=== PATIENT | male | born 1960 | race Caucasian/White ===

== ENCOUNTER 2018-09-08 19:12 | Emergency (ER) | payer OTHER ==
--- NOTE | 2018-09-08 20:28 | ED Physician Documentation ---
PD HPI MHE - Stated complaint Stated Complaint: MHE - Chief complaint Chief Complaint: MHE - History obtained from History obtained from: Patient, Family - History of Present Illness Timing - onset: Unknown Contributing factors: Substance abuse - ETOH, Substance abuse - drugs Recently seen: Not recently seen - Additional information Additional information: Patient presents to the emergency department with his daughter. Patient states that he is out of his medication for a few weeks. The medications are queti apine, trazodone, and gabapentin. patients daughter says that the patient was recently kicked out of his girlfriends house. The daughter says her and other family paid for patient to stay at a hotel recently, but that he left hotel to try to get back with the girlfriend, and now does not have a place to live. Patients daughter says that the patient has been accusing her another family for being the cause of his current situation. she says that he has a history of alcohol use as well as illicit drug use, but she does not know if he has used either of these substances recently. She is concerned that his behavior in the last few days is consistent with gilson and expresses desire to have him stay in a hospital. the patient says he does not feel he is manic and he says he does not want to stay in a hospital at this time. Review of Systems Cardiac: reports: Reviewed and negative Respiratory: reports: Reviewed and negative GI: reports: Reviewed and negative Neurologic: reports: Reviewed and negative Psychiatric: reports: Insomnia. denies: Depressed, Suicidal, Homicidal, Hallucinations, Delusions, Anxiety PD PAST MEDICAL HISTORY - Past Medical History Past Medical History: Yes GI: GERD Psych: Bipolar disorder - Past Surgical History Past Surgical History: Yes General: Cholecystectomy Ortho: Other - Present Medications Home Medications: Ambulatory Orders Medication Instructions Recorded Confirmed Omeprazole 20 mg PO DAILY 08/18/16 09/08/18 QUEtiapine [SEROquel] 25 mg PO DAILY 08/18/16 09/08/18 Gabapentin 100 mg PO TID 09/08/18 09/08/18 traZODone [Desyrel] 100 mg PO DAILY PM 09/08/18 09/08/18 Cephalexin [Keflex] 500 mg PO BID #14 capsule 09/09/18 - Allergies Allergies/Adverse Reactions: Allergies Allergy/AdvReac Type Severity Reaction Status Date / Time codeine Allergy Emesis Verified 09/08/18 19:24 - Social History Does the pt smoke?: No Smoking Status: Former smoker Does the pt drink ETOH?: Yes Does the pt have substance abuse?: Yes Substance Use and Type: Marijuana - Immunizations Immunizations are current?: Yes PD ED PE NORMAL - Vitals Vital signs reviewed: Yes - General General: Alert and oriented X 3, No acute distress, Well developed/nourished - HEENT HEENT: PERRL, EOMI, Moist mucous membranes - Cardiac Cardiac: RRR, No murmur - Respiratory Respiratory: No respiratory distress, Clear bilaterally - Abdomen Abdomen: Soft, Non tender - Neuro Neuro: Alert and oriented X 3, hat parts cutter machine 2-12 intact, No motor deficit, No sensory deficit, Normal speech PD ED PE EXPANDED - Psych Psych: Poor eye contact, Other (flat affect) Results - Vitals Vitals: Vital Signs - 24 hr 09/09/18 07:50 Temperature 36.6 C Heart Rate 89 Respiratory 16 Rate Blood Pressure 151/100 H O2 Saturation 99 Oxygen O2 Source Room air - Labs Labs: Microbiology 09/08/18 21:35 Urine Culture - Preliminary Urine,Clean Catch Escherichia Coli Laboratory Tests 09/08/18 09/08/18 09/08/18 21:08 21:08 21:35 WBC 13.2 H RBC 5.10 Hgb 16.8 Hct 46.7 MCV 91.4 MCH 32.9 H MCHC 36.0 RDW 14.1 Plt Count 201 MPV 7.4 Neut # (Auto) 10.2 H Lymph # (Auto) 2.0 [place] # (Auto) 0.9 Eos # (Auto) 0.1 Baso # (Auto) 0.1 Absolute Nucleated RBC 0.01 Nucleated RBC % 0.0 Sodium 131 L Potassium 3.7 Chloride 93 L Carbon Dioxide 25 Anion Gap 13.0 BUN 21 H Creatinine 0.8 Estimated GFR (MDRD) 99 Glucose 138 H Calcium 9.5 Urine Color DARK YELLOW Urine Clarity HAZY Urine pH 5.5 Ur Specific [place] 1.020 Urine Protein NEGATIVE Urine Glucose (UA) NEGATIVE Urine Ketones 40 H Urine Occult Blood TRACE-LYSE Urine Nitrite POSITIVE H Urine Bilirubin NEGATIVE Urine Urobilinogen 0.2 (NORMAL) Ur Leukocyte Esterase MODERATE H Urine RBC 0-5 Urine WBC >25 H Ur Squamous Epith Cells FEW Squamous Urine Bacteria Few Urine Mucus Marked Strands Ur Microscopic Review INDICATED Urine Culture Comments INDICATED Salicylates < 6.0 Urine Opiates Screen NEGATIVE Ur Oxycodone Screen NEGATIVE Urine Methadone Screen NEGATIVE Ur Propoxyphene Screen NEGATIVE Acetaminophen < 10 L Ur Barbiturates Screen NEGATIVE Ur Tricyclics Screen NEGATIVE Ur Phencyclidine Scrn NEGATIVE Ur Amphetamine Screen POSITIVE H U Methamphetamines Scrn POSITIVE H U Benzodiazepines Scrn NEGATIVE Urine Cocaine Screen NEGATIVE U Cannabinoids Screen POSITIVE H Ethyl Alcohol < 5.0 PD MEDICAL DECISION MAKING - ED course Complexity details: reviewed results, re-evaluated patient, considered differential, d/w patient, d/w family ED course: patient was cooperative during my ED shift. he did not feel telepsych consult was necessary and wanted to simply have doses of, and prescriptions for, his usual medications (see HPI). however, he was willing to stay in ED for telepsych consult. telepsych consult recommended inpatient stay, and he stayed in ED overnight and I signed out the case to Dr. Mosley at end of my shift 7AM pending SW evaluation. Departure - Departure Disposition: 01 Home, Self Care Clinical Impression: Acute psychosis Acute cystitis Qualifiers: Hematuria presence: without hematuria Qualified Code(s): N30.00 - Acute cystitis without hematuria Condition: Fair Follow-Up: Fabián Rizvi PA [Primary Care Provider] - Prescriptions: Cephalexin [Keflex] 500 mg PO BID #14 capsule Comments: You have decided that you do not want to be placed into a behavioral health center. You understand that you have not been fully optimize regarding your medications. You have refused admission for ongoing management of your mental health. Your daughter is comfortable with this plan and has assumed your care.. You understand that you are risk for significant decompensation and worsening. If your symptoms worsen please return back to the emergency department immediately for any worsening or concerns. Discharge Date/Time: 09/09/18 12:15
[2018-09-08] MEDS ORDERED: ONDANSETRON ODT 4 MG TABLET TL STA (21:07)
[2018-09-08 21:16] LABS: BASOPHILS # (AUTO) 0.1 10^3/uL (0.0-0.1); BASOPHILS % (AUTO) 0.6 %; EOSINOPHILS # (AUTO) 0.1 10^3/uL (0.0-0.7); EOSINOPHILS % (AUTO) 0.6 %; HGB - HEMOGLOBIN 16.8 g/dL (14.0-18.0); LYMPHOCYTES % (AUTO) 14.7 %; MEAN CORPUSCULAR HEMOGLOBIN 32.9 pg (27.0-31.0); MEAN CORPUSCULAR VOLUME 91.4 fL (80.0-94.0); MEAN PLATELET VOLUME 7.4 fL (7.4-11.4); MONOCYTES # (AUTO) 0.9 10^3/uL (0.0-1.0); MONOCYTES % (AUTO) 6.8 %; NEUTROPHILS # (AUTO) 10.2 10^3/uL (1.5-6.6); NEUTROPHILS % (AUTO) 77.3 %; PLT - PLATELET COUNT 201 10^3/uL (130-450); RED CELL DISTRIBUTION WIDTH 14.1 % (12.0-15.0); WHITE BLOOD COUNT 13.2 x10^3/uL (4.8-10.8)
[2018-09-08 21:28] LABS: ACETAMINOPHEN < 10 ug/mL (10-30); BUN - BLOOD UREA NITROGEN 21 mg/dL (6-20); CALCIUM 9.5 mg/dL (8.5-10.3); CARBON DIOXIDE - CO2 25 mmol/L (21-32); CHLORIDE 93 mmol/L (101-111); CREATININE 0.8 mg/dL (0.6-1.2); GFR - MDRD 99 (>89); GLUCOSE 138 mg/dL (70-100); SALICYLATE < 6.0 mg/dL; SODIUM 131 mmol/L (135-145)
[2018-09-08 22:03] LABS: MUDS CUTOFF CONCENTRATIONS CUTOFF CONC BELOW:
[2018-09-08 22:07] LABS: BILIRUBIN,URINE NEGATIVE (NEGATIVE); GLUCOSE, URINE (UA) NEGATIVE (NEGATIVE); KETONES,URINE (UA) 40 mg/dL (NEGATIVE); LEUKOCYTE ESTERASE, URINE MODERATE (NEGATIVE); NITRITE,URINE POSITIVE (NEGATIVE); OCCULT BLOOD,URINE TRACE-LYSE (NEGATIVE); PH,URINE 5.5 PH (5.0-7.5); PROTEIN,URINE NEGATIVE (NEGATIVE); UROBILINOGEN,URINE 0.2 (NORMAL) E.U./dL (NORMAL)
[2018-09-08 22:09] LABS: CLARITY,URINE HAZY (CLEAR)
[2018-09-08 22:23] LABS: BACTERIA,URINE Few /HPF (None Seen); MUCUS,URINE Marked Strands; RBC,URINE 0-5 /HPF (0-5); SQUAMOUS EPITHELIAL CELL,UR FEW Squamous (<= Few)
[2018-09-08 22:24] LABS: AMPHETAMINE SCREEN,URINE POSITIVE (NEGATIVE); BENZODIAZEPINES SCREEN, URINE NEGATIVE (NEGATIVE); COCAINE SCREEN URINE NEGATIVE (NEGATIVE); METHADONE SCREEN, URINE NEGATIVE (NEGATIVE); METHAMPHETAMINES SCREEN, URINE POSITIVE (NEGATIVE); OPIATE SCREEN, URINE NEGATIVE (NEGATIVE); OXYCODONE SCREEN, URINE NEGATIVE (NEGATIVE); PROPOXYPHENE SCREEN, URINE NEGATIVE (NEGATIVE); TRICYCLIC ANTIDEPRESSANT,URINE NEGATIVE (NEGATIVE)
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
[2018-09-09] MEDS ORDERED: cephALEXin 250 MG CAPSULE PO STA (01:27)
[2018-09-09] MEDS ORDERED: LORazepam 0.5 MG TABLET PO STA (03:52)
[2018-09-09 07:54] VITALS: BP 151/100
[2018-09-09] MEDS ORDERED: LORazepam 0.5 MG TABLET PO PRN (10:22)
[2018-09-09] MEDS ORDERED: OLANZapine ODT 5 MG TABLET TL SCH (10:22)
--- NOTE | 2018-09-09 12:29 | ED Physician Documentation ---
ED Addendum - Addendum Addendum: 09/09/18 12:29 The patient's care was turned over to me at 7 AM by the off going emergency physician. The patient is currently awaiting placement into a behavioral center and for social work to provide placement. After social work had evaluated the patient The patient has decided that he does not want to be placed into a behavioral health center. Social work feels that the patient contracts for safety and is a safe discharge at this point. I reviewed the note from tele-psychiatry and explained to the patient that it appears that the patient would benefit from inpatient therapy since he does not appear safe at this time. The patient has decided that he does not want any treatment or transfer at our facility. Per social work the patient is not obtainable. The patient absconded from the emergency department prior to discharge instructions being given.
== END 2018-09-09 12:15 | disposition home or self-care (01) ==
LOC: ED 19:12
DX: F23 Brief psychotic disorder (principal); F30.9 Manic episode, unspecified; N30.00 Acute cystitis without hematuria; Z59.0 Homelessness; Z87.891 Personal history of nicotine dependence
CPT/HCPCS: 36415; 80048; 80306; 80307; 80320; 80329; 81001; 85025; 87086; 87181; 99283; 99284; A9270; G0426; Q0162; Q3014; 81003

== ENCOUNTER 2022-12-23 14:34 | Outpatient (CLI) | payer OTHER | END 2022-12-23 23:59 | disposition critical access hospital (66) | LOC: EMS 14:34 | DX: R45.851 Suicidal ideations (principal) | CPT/HCPCS: A0425; A0429 ==

== ENCOUNTER 2022-12-23 15:37 | Emergency (ER) | payer OTHER ==
--- NOTE | 2022-12-23 15:53 | ED Physician Documentation ---
PD HPI MHE - Stated complaint Stated Complaint: SI - History obtained from History obtained from: Patient - Additional information Additional information: 62-year-old gentleman ran out of his medications recently. He was on Wellbutrin 100 mg p.o. twice daily, Risperdal 1.5 mg at night, and trazodone 100 mg at night. He has been having trouble getting [facility]. [facility] and he mentioned that he does have a suicidal ideation. He says with no plan. They called 911 and he is here for evaluation and treatment. He admits to hopelessness and being in a bad place because of a pending eviction. He denies access to firearms, and he denies any suicidal plan. He has attempted suicide in the past but its been a few years, 2018. He declines hospitalization as he needs to go take care of his dogs Jennifer. PD PAST MEDICAL HISTORY - Past Medical History GI: GERD Psych: Bipolar disorder - Past Surgical History Past Surgical History: Yes General: Cholecystectomy Ortho: Other - Present Medications Home Medications: Ambulatory Orders Medication Instructions Recorded Confirmed Omeprazole 20 mg PO DAILY 08/18/16 09/08/18 QUEtiapine [SEROquel] 25 mg PO DAILY 08/18/16 09/08/18 Gabapentin 100 mg PO TID 09/08/18 09/08/18 traZODone [Desyrel] 100 mg PO DAILY PM 09/08/18 09/08/18 cephALEXin [Keflex] 500 mg PO BID #14 capsule 09/09/18 Trazodone HCl 100 mg PO QPM #30 tablet 12/23/22 buPROPion [Wellbutrin Sr] 100 mg PO BID #60 tablet 12/23/22 risperiDONE [RisperDAL] 1 mg PO QPM #30 tablet 12/23/22 - Allergies Allergies/Adverse Reactions: Allergies Allergy/AdvReac Type Severity Reaction Status Date / Time codeine Allergy Emesis Verified 09/08/18 19:24 - Social History Does the pt smoke?: No Smoking Status: Former smoker Does the pt drink ETOH?: Yes Does the pt have substance abuse?: Yes - Immunizations Immunizations are current?: Yes PD ED PE NORMAL - Vitals Vital signs reviewed: Yes - General General: Alert and oriented X 3, No acute distress - HEENT HEENT: PERRL, EOMI - Neuro Neuro: Alert and oriented X 3, nursing executive 2-12 intact, No motor deficit, No sensory deficit, Normal speech Eye Opening: Spontaneous Motor: Obeys Commands Verbal: Oriented GCS Score: 15 - Psych Psych: Normal mood Results - Vitals Vitals: Vital Signs - 24 hr 12/23/22 15:50 Temperature 37.3 C Heart Rate 65 Respiratory 18 Rate Blood Pressure 138/99 H O2 Saturation 96 Oxygen O2 Source Room air PD Medical Decision Making - ED course ED course: 62-year-old gentleman presents with vague suicidal ideation without plan. We are awaiting social work consultation when he walked out of the department without prescriptions or formal discharge. Departure - Departure Disposition: ED [place] Clinical Impression: Depression Condition: Good Record reviewed to determine appropriate education?: Yes Instructions: ED Depression Prescriptions: risperiDONE [RisperDAL] 1 mg PO QPM #30 tablet Trazodone HCl 100 mg PO QPM #30 tablet buPROPion [Wellbutrin Sr] 100 mg PO BID #60 tablet
[2022-12-23 15:57] VITALS: BP 138/99
== END 2022-12-23 16:02 | disposition left against medical advice (07) ==
LOC: EDUNIT# → ED 15:37
DX: R45.851 Suicidal ideations (principal); F32.A Depression, unspecified; Z87.891 Personal history of nicotine dependence
CPT/HCPCS: 99283

== ENCOUNTER 2023-02-02 13:50 | Outpatient (CLI) | payer OTHER | END 2023-02-02 23:59 | disposition critical access hospital (66) | LOC: EMS 13:50 | DX: Z04.6 Encounter for general psychiatric examination, requested by authority (principal); R45.851 Suicidal ideations; R45.1 Restlessness and agitation; Z78.1 Physical restraint status | CPT/HCPCS: A0425; A0429 ==

== ENCOUNTER 2023-02-02 14:13 | Emergency (ER) | payer OTHER ==
[2023-02-02] MEDS ORDERED: OLANZapine 10 MG VIAL IM STA (14:34)
[2023-02-02] MEDS ORDERED: traZODone 50 MG TABLET PO STA (14:34)
--- OUTSIDE RECORDS SUMMARY | 2023-02-02 14:45 | EXTERNAL MEDICAL SUMMARY RPT | Continuity of Care Document ---
:1960 Author Organization [facility] Address [address] [place] [address] Phone Care Team Providers Name Role Phone Giovanni Chirinos Unavailable Unavailable Allergies and Intolerances date description facility type (no date) No Known Drug Allergies [facility] ([facility] own) Encounters No information. Functional Status No information. Immunizations No information. Medications No information. Problems date description facility 2022-12-26 00:00 Unilateral incarcerated inguinal hernia [facility] 2023-01-02 08:57 Bilateral inguinal hernia, without obst ruction [facility] or gangrene, Procedures date description facility 2022-12-26 00:00 US scrotum [facility] 2022-12-26 00:00 Computed tomography of abdomen and pelv is [facility] without contrast 2022-12-27 00:00 Hernia Repair - Inguinal (Right) [facility] Results/Labs test date author facility value unit interpret ation Result panel 1 (unknown) (no date[facility] Result panel 2 (unknown) (no date) (unknown[facility]) Result panel 3 (unknown) (no date) (unknown[facility]) Result panel 4 (unknown) (no date) (unknown[facility]) Result panel 5 (unknown) (no date) (unknown[facility]) Result panel 6 (unknown) (no date) (unknown[facility]) Result panel 7 (unknown) (no date) (unknown[facility]) Result panel 8 (unknown) (no date) (unknown[facility]) Result panel 9 (unknown) (no date) (unknown[facility]) Result panel 10 (unknown) (no date) (unknown[facility]) Result panel 11 (unknown) (no date) (unknown[facility]) Result panel 12 (unknown) (no date) (unknown[facility]) Result panel 13 (unknown) (no date) (unknown[facility]) Result panel 14 (unknown) (no date) (unknown[facility]) Result panel 15 (unknown) (no date) (unknown[facility]) Result panel 16 (unknown) (no date) (unknown[facility]) Result panel 17 (unknown) (no date) (unknown[facility]) Result panel 18 (unknown) (no date) (unknown[facility]) Result panel 19 (unknown) (no date) (unknown[facility]) Result panel 20 (unknown) (no date) (unknown[facility]) Result panel 21 (unknown) (no date) (unknown[facility]) Result panel 22 (unknown) (no date) (unknown[facility]) Result panel 23 (unknown) (no date) (unknown[facility]) Result panel 24 (unknown) (no date) (unknown[facility]) Result panel 25 (unknown) (no date) (unknown[facility]) Result panel 26 (unknown) (no date) (unknown[facility]) Result panel 27 (unknown) (no date) (unknown[facility]) Result panel 28 (unknown) (no date) (unknown[facility]) Result panel 29 (unknown) (no date) (unknown[facility]) Result panel 30 (unknown) (no date) (unknown[facility]) Result panel 31 (unknown) (no date) (unknown[facility]) Result panel 32 (unknown) (no date) (unknown[facility]) Result panel 33 (unknown) (no date) (unknown[facility]) Result panel 34 (unknown) (no date) (unknown) [facility]) Result panel 35 (unknown) (no date) (unknown[facility]) Result panel 36 (unknown) (no date) (unknown[facility]) Result panel 37 (unknown) (no date) (unknown[facility]) Result panel 38 (unknown) (no date) (unknown[facility]) Result panel 39 (unknown) (no date) (unknown[facility]) Result panel 40 (unknown) (no date) (unknown[facility]) Result panel 41 (unknown) (no date) (unknown[facility]) Result panel 42 (unknown) (no date) (unknown[facility]) Result panel 43 (unknown) (no date) (unknown) [facility]) Result panel 44 (unknown) (no date) (unknown[facility]) Result panel 45 (unknown) (no date) (unknown[facility]) Result panel 46 (unknown) (no date) (unknown[facility]) Result panel 47 (unknown) (no date) (unknown[facility]) Result panel 48 (unknown) (no date) (unknown[facility]) Result panel 49 (unknown) (no date) (unknown) [facility]) Result panel 50 (unknown) (no date) (unknown) [facility]) Result panel 51 (unknown) (no date) (unknown[facility]) Result panel 52 (unknown) (no date) (unknown) [facility]) Result panel 53 (unknown) (no date) (unknown) [facility]) Result panel 54 (unknown) (no date) (unknown[facility]) Result panel 55 (unknown) (no date) (unknown[facility]) Result panel 56 (unknown) (no date) (unknown[facility]) Result panel 57 (unknown) (no date) (unknown[facility]) Result panel 58 (unknown) (no date) (unknown[facility]) Result panel 59 (unknown) (no date) (unknown[facility]) Result panel 60 (unknown) (no date) (unknown[facility]) Result panel 61 (unknown) (no date) (unknown) [facility]) Result panel 62 (unknown) (no date) (unknown) [facility]) Result panel 63 (unknown) (no date) (unknown) [facility]) Result panel 64 (unknown) (no date) (unknown) [facility]) Result panel 65 (unknown) (no date) (unknown) [facility]) Result panel 66 (unknown) (no date) (unknown) [facility]) Result panel 67 (unknown) (no date) (unknown) [facility]) Result panel 68 (unknown) (no date) (unknown) [facility]) Result panel 69 (unknown) (no date) (unknown) [facility]) Result panel 70 (unknown) (no date) (unknown) [facility]) Result panel 71 (unknown) (no date) (unknown) [facility]) Result panel 72 (unknown) (no date) (unknown) [facility]) Result panel 73 (unknown) (no date) (unknown) [facility]) Result panel 74 (unknown) (no date) (unknown) [facility]) Result panel 75 (unknown) (no date) (unknown) [facility]) Result panel 76 (unknown) (no date) (unknown) [facility]) Result panel 77 (unknown) (no date) (unknown[facility]) Result panel 78 (unknown) (no date) (unknown) (unknown) (no value) (units (un known) unknown) (unknown) (no date) (unknown) (unknown) 010 (units (unkn own) unknown) (unknown) (no date) (unknown) (unknown) 12/26/22 (units (unkn own) unknown) (unknown) (no date) (unknown) (unknown) 21:25 (units (unkn own) unknown) (unknown) (no date) (unknown) (unknown) Age/Sex: 62 / (units (unknown) M unknown) (unknown) (no date) (unknown) (unknown) Allergies (units (unk nown) unknown) (unknown) (no date) (unknown) (unknown) Allergy/AdvRea (units (unknown) c Type Severity unknown) Reaction Status Date / Time (unknown) (no date) (unknown) (unknown) Blood Pressure (units (unknown) 142/92 H unknown) 12/26/22 21:25 (unknown) (no date) (unknown) (unknown) Blood Pressure (units (unknown) 142/92 H unknown) (unknown) (no date) (unknown) (unknown) Chief (units (unkn own) complaint: unknown) Abdominal Pain (unknown) (no date) (unknown) (unknown) Course (units (unkn own) unknown) (unknown) (no date) (unknown) (unknown) : (units (unkn own) 1960 unknown) Acct:[id number] (unknown) (no date) (unknown) (unknown) Date of (units (unkn own) Service: unknown) 12/26/22 (unknown) (no date) (unknown) (unknown) ER Physician: (units (unknown) Giovanni Chirinos unknown) D.O. (unknown) (no date) (unknown) (unknown) Emergency (units (unk nown) Report unknown) (unknown) (no date) (unknown) (unknown) Exam (units (unkn own) unknown) (unknown) (no date) (unknown) (unknown) General (units (unkn own) unknown) (unknown) (no date) (unknown) (unknown) HPI - General (units (unknown) Adult unknown) (unknown) (no date) (unknown) (unknown) Initial Vital (units (unknown) Signs unknown) (unknown) (no date) (unknown) (unknown) Initial Vital (units (unknown) Signs: unknown) (unknown) (no date) (unknown) (unknown) [facility] ([facility] [address] unknown) [address] [place] [id number] (unknown) (no date) (unknown) (unknown) Mode of (units (unkn own) arrival: EMS unknown) (unknown) (no date) (unknown) (unknown) No Known Drug (units (unknown) Allergies unknown) Allergy Verified 12/26/22 21:43 (unknown) (no date) (unknown) (unknown) Oxygen (units (unkn own) Delivery Method unknown) 12/26/22 21:25 (unknown) (no date) (unknown) (unknown) Oxygen (units (unkn own) Delivery Method unknown) Room Air (unknown) (no date) (unknown) (unknown) Patient: (units (unkn own) Nithin Walton unknown) MR#: [id number] (unknown) (no date) (unknown) (unknown) Pulse Oximetry (units (unknown) 94 12/26/22 unknown) 21:25 (unknown) (no date) (unknown) (unknown) Pulse Oximetry (units (unknown) 94 unknown) (unknown) (no date) (unknown) (unknown) Pulse Rate 73 (units (unknown) 12/26/22 21:25 unknown) (unknown) (no date) (unknown) (unknown) Pulse Rate 73 (units (unknown) unknown) (unknown) (no date) (unknown) (unknown) Related Data (units ( unknown) unknown) (unknown) (no date) (unknown) (unknown) Respiratory (units (u nknown) Rate 20 unknown) 12/26/22 21:25 (unknown) (no date) (unknown) (unknown) Respiratory (units (u nknown) Rate 20 unknown) (unknown) (no date) (unknown) (unknown) Signed By: (units (un known) unknown) (unknown) (no date) (unknown) (unknown) Source: (units (unkn own) patient unknown) (unknown) (no date) (unknown) (unknown) Stated (units (unkn own) complaint: RLQ/ unknown) Testical pain (unknown) (no date) (unknown) (unknown) Temperature (units (u nknown) 98.2 F 12/26/22 unknown) 21:25 (unknown) (no date) (unknown) (unknown) Temperature (units (u nknown) 98.2 F unknown) (unknown) (no date) (unknown) (unknown) Time Seen by (units ( unknown) Provider: unknown) 12/26/22 21:58 (unknown) (no date) (unknown) (unknown) Vital Signs - (units (unknown) 8 hr unknown) (unknown) (no date) (unknown) (unknown) Vital Signs (units (u nknown) unknown) (unknown) (no date) (unknown) (unknown) Vital signs: (units ( unknown) unknown) Result panel 79 (unknown) (no date) (unknown) (unknown) 0.7 % (unkn own) (unknown) (no date) (unknown) (unknown) 1.8 % (unkn own) (unknown) (no date) (unknown) (unknown) 100 /ul (unkn own) (unknown) (no date) (unknown) (unknown) 14.0 % (unkn own) (unknown) (no date) (unknown) (unknown) 16.3 g/dl (unkn own) (unknown) (no date) (unknown) (unknown) 1700 /ul (unkn own) (unknown) (no date) (unknown) (unknown) 19.6 % (unkn own) (unknown) (no date) (unknown) (unknown) 200 /ul (unkn own) (unknown) (no date) (unknown) (unknown) 205 x10 3/ul (unkn own) (unknown) (no date) (unknown) (unknown) 31.7 pg (unkn own) (unknown) (no date) (unknown) (unknown) 34.9 % (unkn own) (unknown) (no date) (unknown) (unknown) 46.6 % (unkn own) (unknown) (no date) (unknown) (unknown) 5.13 x10 6/ul (unkn own) (unknown) (no date) (unknown) (unknown) 500 /ul (unkn own) (unknown) (no date) (unknown) (unknown) 6.2 % (unkn own) (unknown) (no date) (unknown) (unknown) 6300 /ul (unkn own) (unknown) (no date) (unknown) (unknown) 71.7 % (unkn own) (unknown) (no date) (unknown) (unknown) 8.8 x10 3/ul (unkn own) (unknown) (no date) (unknown) (unknown) 90.8 fl (unkn own) Result panel 80 (unknown) (no date) (unknown) (unknown) > 60 ml/min (unkn own) (unknown) (no date) (unknown) (unknown) > 60 ml/min (unkn own) (unknown) (no date) (unknown) (unknown) 0.81 mg/dl (unkn own) (unknown) (no date) (unknown) (unknown) 105 mmol/l (unkn own) (unknown) (no date) (unknown) (unknown) 12 mg/dl (unkn own) (unknown) (no date) (unknown) (unknown) 138 mmol/l (unkn own) (unknown) (no date) (unknown) (unknown) 14.8 (units unknown) (unknown) (unknown) (no date) (unknown) (unknown) 192 mg/dl (unkn own) (unknown) (no date) (unknown) (unknown) 192 mg/dl (unkn own) (unknown) (no date) (unknown) (unknown) 21 mmol/l (unkn own) (unknown) (no date) (unknown) (unknown) 4.2 mmol/l (unkn own) (unknown) (no date) (unknown) (unknown) 4.2 mmol/l (unkn own) (unknown) (no date) (unknown) (unknown) 9.2 mg/dl (unkn own) Result panel 81 (unknown) (no date) (unknown) (unknown) Negative (units (unkn own) unknown) (unknown) (no date) (unknown) (unknown) Negative (units (unkn own) unknown) Result panel 82 (unknown) (no (unknown) (unknown) (no value) (units (unk nown) date) unknown) (unknown) (no (unknown) (unknown) 12/26/22 (units (unkno wn) date) unknown) (unknown) (no (unknown) (unknown) 1. (units (unkno wn) date) Bowel-containing unknown) inguinal hernia demonstrated lateral to the right (unknown) (no (unknown) (unknown) 1. Small right (units (unknown) date) inguinal hernia unknown) with partial herniation of a small bowel loop. (unknown) (no (unknown) (unknown) [address] (units (unknown) date) unknown) (unknown) (no (unknown) (unknown) 2. Mild segmental (units (unknown) date) wall thickening in unknown) the sigmoid colon suggestive of a mild (unknown) (no (unknown) (unknown) 3. Colonic (units (unk nown) date) diverticulosis unknown) without definite acute diverticulitis. (unknown) (no (unknown) (unknown) 4. No evidence of (units (unknown) date) appendicitis. unknown) (unknown) (no (unknown) (unknown) 9010 (units (unkno wn) date) unknown) (unknown) (no (unknown) (unknown) ABDOMEN: (units (unkno wn) date) unknown) (unknown) (no (unknown) (unknown) Abdominal Nodes: (units (unknown) date) No retroperitoneal unknown) or mesenteric adenopathy by size criteria. (unknown) (no (unknown) (unknown) Accession Number: (units (unknown) date) [id number] unknown) (unknown) (no (unknown) (unknown) Accession Number: (units (unknown) date) [id number] unknown) (unknown) (no (unknown) (unknown) Adrenal Glands: (units (unknown) date) No adrenal unknown) nodules. (unknown) (no (unknown) (unknown) Age/Sex: 62 / M (units (unknown) date) Date of Service: unknown) (unknown) (no (unknown) (unknown) [place], [place] (units ( unknown) date) [id number] unknown) (unknown) (no (unknown) (unknown) Approved by: (units (u nknown) date) Anibal Lechuga, unknown) M.DChloe on 12/27/2022 at 2:06 (unknown) (no (unknown) (unknown) Approved by: (units (u nknown) date) Anibal Lechuga, unknown) MChloeDChloe on 12/27/2022 at 2:23 (unknown) (no (unknown) (unknown) Axial sections (units (unknown) date) were acquired from unknown) the lung bases to the pubic symphysis. (unknown) (no (unknown) (unknown) Biliary ducts: No (units (unknown) date) biliary ductal unknown) dilatation. (unknown) (no (unknown) (unknown) Bladder: (units (unkno wn) date) Unremarkable. unknown) (unknown) (no (unknown) (unknown) Bones: Visualized (units (unknown) date) osseous structures unknown) demonstrate no suspicious focal lesions. (unknown) (no (unknown) (unknown) COMPARISON: None. (units (unknown) date) unknown) (unknown) (no (unknown) (unknown) CT Scan Report (units (unknown) date) unknown) (unknown) (no (unknown) (unknown) Color and pulse (units (unknown) date) Doppler unknown) interrogation was performed of both testicles. (unknown) (no (unknown) (unknown) Coronal and (units (un known) date) unknown) (unknown) (no (unknown) (unknown) : 1960 (units (unknown) date) Acct:[id number] unknown) (unknown) (no (unknown) (unknown) Dictated by: (units (u nknown) date) Anibal Lechuga, unknown) M.D. on 12/27/2022 at 1:44 (unknown) (no (unknown) (unknown) Dictated by: (units (u nknown) date) Anibal Lechuga, unknown) M.D. on 12/27/2022 at 2:18 (unknown) (no (unknown) (unknown) Doppler: Color (units (unknown) date) and pulse Doppler unknown) demonstrate normal and symmetric arterial (unknown) (no (unknown) (unknown) Epididymis is (units ( unknown) date) normal in overall unknown) size and morphology. No hydrocele or (unknown) (no (unknown) (unknown) FINDINGS: (units (unkn own) date) unknown) (unknown) (no (unknown) (unknown) Gallbladder: (units (u nknown) date) Surgically absent. unknown) (unknown) (no (unknown) (unknown) Heart: Heart is (units (unknown) date) normal in size. unknown) There is a small hiatal hernia. (unknown) (no (unknown) (unknown) IMPRESSION: (units (un known) date) unknown) (unknown) (no (unknown) (unknown) INDICATIONS: PAIN (units (unknown) date) unknown) (unknown) (no (unknown) (unknown) INDICATIONS: abd (units (unknown) date) pain unknown) (unknown) (no (unknown) (unknown) Image quality: (units (unknown) date) Excellent. unknown) (unknown) (no (unknown) (unknown) [facility] (units (unknown) date) unknown) (unknown) (no (unknown) (unknown) Kidneys and (units (un known) date) Ureters: No unknown) hydronephrosis. There is a nonobstructing stone (unknown) (no (unknown) (unknown) Left: Testicle (units (unknown) date) measures 3.5 x 2.0 unknown) x 2.2 cm and appears homogeneous in (unknown) (no (unknown) (unknown) Liver: (units (unkno wn) date) Noncontrast unknown) evaluation of the liver demonstrates no discrete hepatic (unknown) (no (unknown) (unknown) Loc: [facility]-1 (units ( unknown) date) unknown) (unknown) (no (unknown) (unknown) Lung bases: There (units (unknown) date) is mild dependent unknown) atelectasis. (unknown) (no (unknown) (unknown) Miscellaneous: (units (unknown) date) There is a small unknown) right inguinal hernia with partial herniation (unknown) (no (unknown) (unknown) No (units (unkno wn) date) unknown) (unknown) (no (unknown) (unknown) Ordering (units (unkno wn) date) Provider: unknown) Giovanni Chirinos D.O. (unknown) (no (unknown) (unknown) Overlying scrotal (units (unknown) date) skin is normal in unknown) thickness. There is a bowel containing (unknown) (no (unknown) (unknown) Overlying scrotal (units (unknown) date) skin is normal in unknown) thickness. (unknown) (no (unknown) (unknown) PELVIS: (units (unkno wn) date) unknown) (unknown) (no (unknown) (unknown) PROCEDURE: CT (units ( unknown) date) ABDOMEN PELVIS WO unknown) CON (unknown) (no (unknown) (unknown) PROCEDURE: US (units ( unknown) date) SCROTUM unknown) (unknown) (no (unknown) (unknown) Pancreas: There (units (unknown) date) is mild dilatation unknown) of the pancreatic duct in the pancreatic (unknown) (no (unknown) (unknown) Patient: (units (unkno wn) date) Nithin Walton MR#: unknown) [id number] (unknown) (no (unknown) (unknown) Pelvic Nodes: No (units (unknown) date) enlarged lymph unknown) nodes. (unknown) (no (unknown) (unknown) Pelvic Organs: (units (unknown) date) Unremarkable. unknown) (unknown) (no (unknown) (unknown) Peritoneum: No (units (unknown) date) abnormal unknown) intraperitoneal fluid. No free air. (unknown) (no (unknown) (unknown) Procedure: CT (units ( unknown) date) abdomen pelvis wo unknown) con (unknown) (no (unknown) (unknown) Procedure: US (units ( unknown) date) scrotum unknown) (unknown) (no (unknown) (unknown) Real-time (units (unkn own) date) scanning was unknown) performed of the scrotum and testicles, with image (unknown) (no (unknown) (unknown) Right: Testicle (units (unknown) date) measures 4.1 x 2.4 unknown) x 2.6 cm and appears homogenous in (unknown) (no (unknown) (unknown) Signed (units (unkno wn) date) unknown) (unknown) (no (unknown) (unknown) Spleen: Normal in (units (unknown) date) size. unknown) (unknown) (no (unknown) (unknown) Stomach and (units (un known) date) Bowel: Stomach and unknown) small bowel loops are normal in caliber and (unknown) (no (unknown) (unknown) TECHNIQUE: (units (unk nown) date) unknown) (unknown) (no (unknown) (unknown) Ultrasound Report (units (unknown) date) unknown) (unknown) (no (unknown) (unknown) Ventral Wall: No (units (unknown) date) hernia. unknown) (unknown) (no (unknown) (unknown) Vessels: Aorta (units (unknown) date) and inferior vena unknown) cava are normal in size. (unknown) (no (unknown) (unknown) approximately (units ( unknown) date) 500-600 [place] unknown) units. (unknown) (no (unknown) (unknown) automated (units (unkn own) date) exposure control, unknown) adjustment of mA and/or kV according to patient (unknown) (no (unknown) (unknown) bowel loop. No (units (unknown) date) evidence of unknown) associated bowel obstruction or strangulation. (unknown) (no (unknown) (unknown) colitis. (units (unkno wn) date) unknown) (unknown) (no (unknown) (unknown) demonstrated (units (u nknown) date) unknown) (unknown) (no (unknown) (unknown) diverticulosis (units (unknown) date) unknown) (unknown) (no (unknown) (unknown) documentation. (units (unknown) date) unknown) (unknown) (no (unknown) (unknown) echotexture. (units (u nknown) date) unknown) (unknown) (no (unknown) (unknown) evidence of (units (un known) date) associated bowel unknown) obstruction or definite strangulation. (unknown) (no (unknown) (unknown) flow in both (units (u nknown) date) unknown) (unknown) (no (unknown) (unknown) head (units (unkno wn) date) unknown) (unknown) (no (unknown) (unknown) hernia (units (unkno wn) date) unknown) (unknown) (no (unknown) (unknown) intravenous (units (un known) date) contrast. No unknown) peripancreatic fat stranding or fluid collections. (unknown) (no (unknown) (unknown) lateral to the (units (unknown) date) right testicle unknown) measuring approximately 7.0 x 2.4 x 7.1 cm. (unknown) (no (unknown) (unknown) mass. (units (unkno wn) date) unknown) (unknown) (no (unknown) (unknown) measuring up to (units (unknown) date) approximately 0.4 unknown) cm with evaluation limited in the absence of (unknown) (no (unknown) (unknown) of a small (units (unk nown) date) unknown) (unknown) (no (unknown) (unknown) right kidney (units (u nknown) date) measuring up to unknown) 0.6 cm. This demonstrates attenuation values of (unknown) (no (unknown) (unknown) sagittal (units (unkno wn) date) reformats were unknown) performed. For radiation dose reduction, the following (unknown) (no (unknown) (unknown) size. (units (unkno wn) date) unknown) (unknown) (no (unknown) (unknown) testicle. (units (unkn own) date) unknown) (unknown) (no (unknown) (unknown) testicles. (units (unk nown) date) unknown) (unknown) (no (unknown) (unknown) thickness. The (units (unknown) date) appendix is normal unknown) in appearance. 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 (units (u nknown) date) unknown) (unknown) (no (unknown) (unknown) wall (units (unkno wn) date) unknown) (unknown) (no (unknown) (unknown) was used: (units (unkn own) date) unknown) (unknown) (no (unknown) (unknown) within the (units (unk nown) date) sigmoid colon unknown) suggestive of a mild colitis. (unknown) (no (unknown) (unknown) within the (units (unk nown) date) unknown) (unknown) (no (unknown) (unknown) without definite (units (unknown) date) acute unknown) diverticulitis. Mild segmental wall thickening is Result panel 83 (unknown) (no (unknown) (unknown) (no value) (units (unk nown) date) unknown) (unknown) (no (unknown) (unknown) <Electronically (units (unknown) date) signed by Giovanni Chirinos D.O.> (unknown) (no (unknown) (unknown) 010 (units (unkno wn) date) unknown) (unknown) (no (unknown) (unknown) 12/26/22 (units (unkno wn) date) 12/26/22 unknown) Range/Units (unknown) (no (unknown) (unknown) 12/26/22 21:40 (units (unknown) date) unknown) (unknown) (no (unknown) (unknown) 12/26/22 22:10 (units (unknown) date) unknown) (unknown) (no (unknown) (unknown) 12/26/22 22:15 (units (unknown) date) unknown) (unknown) (no (unknown) (unknown) 12/26/22 (units (unkno wn) date) unknown) (unknown) (no (unknown) (unknown) 12/27/22 0258 (units ( unknown) date) unknown) (unknown) (no (unknown) (unknown) 21:25 12/26/22 (units (unknown) date) unknown) (unknown) (no (unknown) (unknown) 21:40 21:40 (units (un known) date) unknown) (unknown) (no (unknown) (unknown) 22:00 (units (unkno wn) date) unknown) (unknown) (no (unknown) (unknown) Admin: 12/26/22 (units (unknown) date) 22:28 Dose: 4 mg unknown) (unknown) (no (unknown) (unknown) Admit Date/Time: (units (unknown) date) 12/26/22 22:11 unknown) (unknown) (no (unknown) (unknown) Admit Provider: (units (unknown) date) Yuliana Degroot unknown) (unknown) (no (unknown) (unknown) Age/Sex: 62 / M (units (unknown) date) unknown) (unknown) (no (unknown) (unknown) Allergies (units (unkn own) date) unknown) (unknown) (no (unknown) (unknown) Allergy/AdvReac (units (unknown) date) Type Severity unknown) Reaction Status Date / Time (unknown) (no (unknown) (unknown) Auscultation: (units ( unknown) date) clear to unknown) auscultation bilaterally (unknown) (no (unknown) (unknown) BUN 12 (9-20) (units ( unknown) date) mg/dL unknown) (unknown) (no (unknown) (unknown) BUN/Creatinine (units (unknown) date) Ratio 14.8 (6-22) unknown) (unknown) (no (unknown) (unknown) Basic Metabolic (units (unknown) date) Panel Stat unknown) (unknown) (no (unknown) (unknown) Baso # (Auto) (units ( unknown) date) 100 (0-100) /uL unknown) (unknown) (no (unknown) (unknown) Baso % (Auto) (units ( unknown) date) 0.7 (0-2) % unknown) (unknown) (no (unknown) (unknown) Blood Pressure (units (unknown) date) 142/92 H 12/26/22 unknown) 21:25 (unknown) (no (unknown) (unknown) Blood Pressure (units (unknown) date) 142/92 H unknown) (unknown) (no (unknown) (unknown) COVID19 -Nasal (units (unknown) date) RAPID/Pre-Proc unknown) Stat (unknown) (no (unknown) (unknown) CT scan - (units (unkn own) date) abdomen/pelvis: unknown) (unknown) (no (unknown) (unknown) Calcium 9.2 (units (un known) date) (8.4-10.2) mg/dL unknown) (unknown) (no (unknown) (unknown) Carbon Dioxide (units (unknown) date) 21 L (22-32) unknown) mmol/L (unknown) (no (unknown) (unknown) Cardio (units (unkno wn) date) unknown) (unknown) (no (unknown) (unknown) Chief complaint: (units (unknown) date) Abdominal Pain unknown) (unknown) (no (unknown) (unknown) Chloride 105 (units (u nknown) date) (98-107) mmol/L unknown) (unknown) (no (unknown) (unknown) Clinical (units (unkno wn) date) Impression: unknown) (unknown) (no (unknown) (unknown) Complete Blood (units (unknown) date) Count AUTO DIFF unknown) Stat (unknown) (no (unknown) (unknown) Consult to (units (unk nown) date) General Surgery unknown) Stat (unknown) (no (unknown) (unknown) Course (units (unkno wn) date) unknown) (unknown) (no (unknown) (unknown) Creatinine 0.81 (units (unknown) date) (0.66-1.25) mg/dL unknown) (unknown) (no (unknown) (unknown) : 1960 (units (unknown) date) Acct:[id number] unknown) (unknown) (no (unknown) (unknown) Date of Service: (units (unknown) date) 12/26/22 unknown) (unknown) (no (unknown) (unknown) Departure (units (unkn own) date) unknown) (unknown) (no (unknown) (unknown) Discharge Plan (units (unknown) date) unknown) (unknown) (no (unknown) (unknown) Discontinued (units (u nknown) date) Medications unknown) (unknown) (no (unknown) (unknown) Documented By: (units (unknown) date) BS unknown) (unknown) (no (unknown) (unknown) Documented By: (units (unknown) date) OW unknown) (unknown) (no (unknown) (unknown) ED Orders (units (unkn own) date) unknown) (unknown) (no (unknown) (unknown) ER Physician: (units ( unknown) date) Giovanni Chirinos unknown) D.O. (unknown) (no (unknown) (unknown) Effort + (units (unkno wn) date) Inspection: unknown) normal respiratory effort (unknown) (no (unknown) (unknown) Emergency Report (units (unknown) date) unknown) (unknown) (no (unknown) (unknown) Eos # (Auto) 200 (units (unknown) date) (0-450) /uL unknown) (unknown) (no (unknown) (unknown) Eos % (Auto) 1.8 (units (unknown) date) L (2-4) % unknown) (unknown) (no (unknown) (unknown) Estimated GFR > (units (unknown) date) 60 (>60) mL/min unknown) (unknown) (no (unknown) (unknown) Exam (units (unkno wn) date) unknown) (unknown) (no (unknown) (unknown) External: normal (units (unknown) date) external exam, unknown) circumcised and hernia (Bilateral inguinal (unknown) (no (unknown) (unknown) Extrem (units (unkno wn) date) unknown) (unknown) (no (unknown) (unknown) Zane as (units (un known) date) there is concern unknown) for strangulation. Plan to be is to admit to the (unknown) (no (unknown) (unknown) GI (units (unkno wn) date) unknown) (unknown) (no (unknown) (unknown) (units (unkno wn) date) unknown) (unknown) (no (unknown) (unknown) General (units (unkno wn) date) unknown) (unknown) (no (unknown) (unknown) General: (units (unkno wn) date) bimanual renal unknown) exam normal bilaterally (unknown) (no (unknown) (unknown) General: no (units (un known) date) rashes or lesions unknown) noted (unknown) (no (unknown) (unknown) General: normal (units (unknown) date) to inspection and unknown) capillary refill normal (unknown) (no (unknown) (unknown) Glucose 192 H (units ( unknown) date) (80-110) mg/dL unknown) (unknown) (no (unknown) (unknown) HENMT (units (unkno wn) date) unknown) (unknown) (no (unknown) (unknown) HPI - General (units ( unknown) date) Adult unknown) (unknown) (no (unknown) (unknown) HPI narrative: (units (unknown) date) unknown) (unknown) (no (unknown) (unknown) Hct 46.6 (41-53) (units (unknown) date) % unknown) (unknown) (no (unknown) (unknown) Head: normal to (units (unknown) date) inspection and unknown) normocephalic (unknown) (no (unknown) (unknown) Hgb 16.3 (units (unkno wn) date) (13.5-17.5) g/dL unknown) (unknown) (no (unknown) (unknown) History of (units (unk nown) date) Present Illness unknown) (unknown) (no (unknown) (unknown) Hydromorphone (units ( unknown) date) HCl unknown) (Hydromorphone 0.5 Mg Inj) 1 mg IV NOW ONE (unknown) (no (unknown) (unknown) Imaging Data (units (u nknown) date) unknown) (unknown) (no (unknown) (unknown) Incarcerated (units (u nknown) date) inguinal hernia unknown) (unknown) (no (unknown) (unknown) Initial Vital (units ( unknown) date) Signs unknown) (unknown) (no (unknown) (unknown) Initial Vital (units ( unknown) date) Signs: unknown) (unknown) (no (unknown) (unknown) Inspection: (units (un known) date) non-distended unknown) (unknown) (no (unknown) (unknown) [facility] (units (unknown) date) [address] unknown) [place] [address] (unknown) (no (unknown) (unknown) Lab Data (units (unkno wn) date) unknown) (unknown) (no (unknown) (unknown) Lab Results (units (un known) date) unknown) (unknown) (no (unknown) (unknown) Lab results (units (un known) date) reviewed: Yes I unknown) reviewed the patient's lab results. (unknown) (no (unknown) (unknown) Labs: (units (unkno wn) date) unknown) (unknown) (no (unknown) (unknown) Last Admin: (units (un known) date) 12/26/22 22:28 unknown) Dose: 125 mls/hr (unknown) (no (unknown) (unknown) Last Admin: (units (un known) date) 12/26/22 22:28 unknown) Dose: 4 mg (unknown) (no (unknown) (unknown) Last Admin: (units (un known) date) 12/26/22 22:41 unknown) Dose: Not Given (unknown) (no (unknown) (unknown) Last Admin: (units (un known) date) 12/26/22 23:53 unknown) Dose: 4 mg (unknown) (no (unknown) (unknown) Last Admin: (units (un known) date) 12/26/22 23:54 unknown) Dose: 1 mg (unknown) (no (unknown) (unknown) Last Admin: (units (un known) date) 12/26/22 23:58 unknown) Dose: 4 mg (unknown) (no (unknown) (unknown) Last Admin: (units (un known) date) 12/27/22 00:37 unknown) Dose: 1 mg (unknown) (no (unknown) (unknown) Lorazepam (units (unkn own) date) (Lorazepam 2 unknown) Mg/Ml Inj) 1 mg IV NOW ONE (unknown) (no (unknown) (unknown) Lymph # (Auto) (units (unknown) date) 1700 (7640-4836) unknown) /uL (unknown) (no (unknown) (unknown) Lymph % (Auto) (units (unknown) date) 19.6 L (25-40) % unknown) (unknown) (no (unknown) (unknown) MCH 31.7 (26-34) (units (unknown) date) PG unknown) (unknown) (no (unknown) (unknown) MCHC 34.9 (units (unkn own) date) (30-36) % unknown) (unknown) (no (unknown) (unknown) MCV 90.8 (units (unkno wn) date) (80-100) fL unknown) (unknown) (no (unknown) (unknown) MDM Narrative (units ( unknown) date) unknown) (unknown) (no (unknown) (unknown) Medical Decision (units (unknown) date) Making unknown) (unknown) (no (unknown) (unknown) Medical decision (units (unknown) date) making narrative: unknown) (unknown) (no (unknown) (unknown) Mode of arrival: (units (unknown) date) EMS unknown) (unknown) (no (unknown) (unknown) [facility] [facility] # (Auto) (units ( unknown) date) 500 (0-900) /uL unknown) (unknown) (no (unknown) (unknown) [place] % (Auto) (units ( unknown) date) 6.2 (3-14) % unknown) (unknown) (no (unknown) (unknown) Morphine Sulfate (units (unknown) date) (Morphine 2 Mg/Ml unknown) Inj) 2 mg IV Q4HR PRN (unknown) (no (unknown) (unknown) Morphine Sulfate (units (unknown) date) (Morphine 4 Mg/Ml unknown) Inj) 4 mg IV NOW ONE (unknown) (no (unknown) (unknown) Neut # (Auto) (units ( unknown) date) 6300 (4220-8815) unknown) /uL (unknown) (no (unknown) (unknown) Neut % (Auto) (units ( unknown) date) 71.7 (50-75) % unknown) (unknown) (no (unknown) (unknown) No Known Drug (units ( unknown) date) Allergies Allergy unknown) Verified 12/26/22 21:43 (unknown) (no (unknown) (unknown) No testicular (units ( unknown) date) torsion unknown) (unknown) (no (unknown) (unknown) Once again I was (units (unknown) date) able to reduce it unknown) somewhat but not completely. Patient was (unknown) (no (unknown) (unknown) Ondansetron HCl (units (unknown) date) (Ondansetron 4 unknown) Mg/2 Ml Inj) 4 mg IV Q4HR PRN (unknown) (no (unknown) (unknown) Ordered: (units (o wn) date) unknown) (unknown) (no (unknown) (unknown) Orders (units (o wn) date) unknown) (unknown) (no (unknown) (unknown) Oxygen Delivery (units (unknown) date) Method 12/26/22 unknown) 21:25 (unknown) (no (unknown) (unknown) Oxygen Delivery (units (unknown) date) Method Room Air unknown) Room Air (unknown) (no (unknown) (unknown) PRN Reason: (units (un known) date) Nausea And unknown) Vomiting (unknown) (no (unknown) (unknown) PRN Reason: pain (units (unknown) date) unknown) (unknown) (no (unknown) (unknown) Palpation: soft, (units (unknown) date) guarding, No unknown) rigid and tender (unknown) (no (unknown) (unknown) Patient (units (o wn) date) Disposition: unknown) Admitted As Inpatient (unknown) (no (unknown) (unknown) Patient (units (o wn) date) initially had unknown) obvious bilateral with right being greater than left (unknown) (no (unknown) (unknown) Patient is a (units (u ) date) 62-year-old male. unknown) Has had known bilateral inguinal hernias for the (unknown) (no (unknown) (unknown) Patient: (units (o wn) date) Nithin Walton MR#: unknown) [id number] (unknown) (no (unknown) (unknown) Penis: normal (units ( unknown) date) penis unknown) (unknown) (no (unknown) (unknown) Plt Count 205 (units ( unknown) date) (150-400) X103/uL unknown) (unknown) (no (unknown) (unknown) Potassium 4.2 (units ( unknown) date) (3.4-5.1) mmol/L unknown) (unknown) (no (unknown) (unknown) Pulse Oximetry (units (unknown) date) 94 12/26/22 21:25 unknown) (unknown) (no (unknown) (unknown) Pulse Oximetry (units (unknown) date) 94 97 unknown) (unknown) (no (unknown) (unknown) Pulse Rate 73 (units ( unknown) date) 12/26/22 21:25 unknown) (unknown) (no (unknown) (unknown) Pulse Rate 73 78 (units (unknown) date) unknown) (unknown) (no (unknown) (unknown) RBC 5.13 (units (unkno wn) date) (4.5-5.9) X106/uL unknown) (unknown) (no (unknown) (unknown) RDW 14.0 (units (unkno wn) date) (11.6-14.8) % unknown) (unknown) (no (unknown) (unknown) ROS Unobtainable: (units (unknown) date) All systems unknown) reviewed + are unremarkable except as noted in HPI (unknown) (no (unknown) (unknown) Radiologist's (units ( unknown) date) Impression: unknown) (unknown) (no (unknown) (unknown) Rate: regular (units ( unknown) date) rate unknown) (unknown) (no (unknown) (unknown) Related Data (units (u nknown) date) unknown) (unknown) (no (unknown) (unknown) Resp (units (unkno wn) date) unknown) (unknown) (no (unknown) (unknown) Respiratory Rate (units (unknown) date) 20 12/26/22 21:25 unknown) (unknown) (no (unknown) (unknown) Respiratory Rate (units (unknown) date) 20 20 unknown) (unknown) (no (unknown) (unknown) Review of (units (unkn own) date) Systems unknown) (unknown) (no (unknown) (unknown) Rhythm: regular (units (unknown) date) rhythm unknown) (unknown) (no (unknown) (unknown) Right-sided (units (un known) date) inguinal hernia unknown) (unknown) (no (unknown) (unknown) Scrotal (units (unkno wn) date) ultrasound: unknown) (unknown) (no (unknown) (unknown) Signed By: (units (unk nown) date) unknown) (unknown) (no (unknown) (unknown) Skin (units (unkno wn) date) unknown) (unknown) (no (unknown) (unknown) Sodium 138 (units (unk nown) date) (137-145) mmol/L unknown) (unknown) (no (unknown) (unknown) Sodium Chloride (units (unknown) date) (Normal Saline unknown) 0.9%) 1,000 mls @ 125 mls/hr IV CONT [place] (unknown) (no (unknown) (unknown) Some nausea. No (units (unknown) date) fevers. He unknown) contacted EMS because of the discomfort to bring (unknown) (no (unknown) (unknown) Source: patient (units (unknown) date) unknown) (unknown) (no (unknown) (unknown) Stated (units (unkno wn) date) complaint: RLQ/ unknown) Testical pain (unknown) (no (unknown) (unknown) Stop: 12/26/22 (units (unknown) date) 22:10 unknown) (unknown) (no (unknown) (unknown) Stop: 12/26/22 (units (unknown) date) 23:31 unknown) (unknown) (no (unknown) (unknown) Stop: 12/26/22 (units (unknown) date) 23:40 unknown) (unknown) (no (unknown) (unknown) Stop: 12/26/22 (units (unknown) date) 23:47 unknown) (unknown) (no (unknown) (unknown) Temperature 98.2 (units (unknown) date) F 12/26/22 21:25 unknown) (unknown) (no (unknown) (unknown) Temperature 98.2 (units (unknown) date) F unknown) (unknown) (no (unknown) (unknown) Testes: normal (units (unknown) date) unknown) (unknown) (no (unknown) (unknown) Time Seen by (units (u nknown) date) Provider: unknown) 12/26/22 21:58 (unknown) (no (unknown) (unknown) Vital Signs - 8 (units (unknown) date) hr unknown) (unknown) (no (unknown) (unknown) Vital Signs (units (un known) date) unknown) (unknown) (no (unknown) (unknown) Vital signs: (units (u nknown) date) unknown) (unknown) (no (unknown) (unknown) WBC 8.8 (units (unkno wn) date) (4.5-11.0) unknown) X103/uL (unknown) (no (unknown) (unknown) [Embedded Image (units (unknown) date) Not Available] unknown) (unknown) (no (unknown) (unknown) again. He is no (units (unknown) date) right testicular unknown) pain. I did discuss the case with (unknown) (no (unknown) (unknown) agreement. (units (unk nown) date) unknown) (unknown) (no (unknown) (unknown) amount of (units (unkn own) date) symptoms that he unknown) is having patient still requires admission to the (unknown) (no (unknown) (unknown) and below (units (unkn own) date) unknown) (unknown) (no (unknown) (unknown) and re-evaluated (units (unknown) date) the patient. The unknown) right inguinal hernia was larger than before. (unknown) (no (unknown) (unknown) being worse than (units (unknown) date) the left. Is unknown) having generalized abdominal tenderness with it. (unknown) (no (unknown) (unknown) bulge out and (units ( unknown) date) become painful unknown) but he is able to push them back in. He states he (unknown) (no (unknown) (unknown) general surgery (units (unknown) date) service for unknown) further evaluation and treatment of his symptomatic (unknown) (no (unknown) (unknown) hernia but (units (unk n) ) without signs of unknown) strangulation/obs truction/incarcer ation. Given the (unknown) (no (unknown) (unknown) hernias) (units (unkno wn) date) unknown) (unknown) (no (unknown) (unknown) hernias. While (units (unknown) date) patient was unknown) boarding in the emergency department he had a fairly (unknown) (no (unknown) (unknown) him to the (units (unk nown) date) emergency unknown) department. (unknown) (no (unknown) (unknown) hospital for (units (u ) date) surgical unknown) intervention. Patient expressed understanding and (unknown) (no (unknown) (unknown) inguinal (units (unkno wn) date) hernias. They unknown) were very tender to palpation and I was able to reduce (unknown) (no (unknown) (unknown) is not having (units ( unknown) date) any problems unknown) urinating. No change in bowel habits. Does (unknown) (no (unknown) (unknown) it somewhat but (units (unknown) date) not convinced unknown) that I could completely reduce the hernia. Also (unknown) (no (unknown) (unknown) it? he states (units ( unknown) date) that the hernias unknown) were protruding and they are hurting more than (unknown) (no (unknown) (unknown) no other (units (unkno wn) date) intra-abdominal unknown) pathology and this did show a right-sided inguinal (unknown) (no (unknown) (unknown) normal and he (units ( unknown) date) can not push them unknown) back in. It is bilateral with the right side (unknown) (no (unknown) (unknown) occasionally have (units (unknown) date) nausea and unknown) vomiting but it seems to not be associated with any (unknown) (no (unknown) (unknown) pain in his (units (un known) date) inguinal region. unknown) He states that today he missed a bus and had to (unknown) (no (unknown) (unknown) past several (units (u nknown) date) years. He has unknown) been seen by his primary doctor the patient states (unknown) (no (unknown) (unknown) specifically (units (u nknown) date) seen a surgeon unknown) about his hernias. He states that they frequently (unknown) (no (unknown) (unknown) sudden onset of (units (unknown) date) abdominal unknown) discomfort. Was vomiting once again. I went back (unknown) (no (unknown) (unknown) that they have (units (unknown) date) been ?trying ?to unknown) get him in to see General surgery. Has not (unknown) (no (unknown) (unknown) the ultrasound (units (unknown) date) was unremarkable. unknown) CT scan was ordered to confirm that there was (unknown) (no (unknown) (unknown) ultrasound was (units (unknown) date) ordered to unknown) confirm that he did not have a testicular torsion and (unknown) (no (unknown) (unknown) very (units (unkno wn) date) uncomfortable unknown) with this. More pain medication was ordered. Testicular (unknown) (no (unknown) (unknown) walk for several (units (unknown) date) hours/miles back unknown) home. He states he thinks that he ?overdid (unknown) (no (unknown) (unknown) when the (units (unkno wn) date) pressure was unknown) taken off the area the hernia does came back out once Result panel 84 (unknown) (no date) (unknown) (unknown) Negative for (units ( unknown) MRSA unknown) (unknown) (no date) (unknown) (unknown) Negative for (units ( unknown) MRSA unknown) Result panel 85 (unknown) (no (unknown) (unknown) (no value) (units (unk nown) date) unknown) (unknown) (no (unknown) (unknown) (past 8 hours): (units (unknown) date) unknown) (unknown) (no (unknown) (unknown) 12/26/22 (units (unkno wn) date) 12/26/22 12/26/22 unknown) (unknown) (no (unknown) (unknown) 12/26/22 21:40 (units (unknown) date) unknown) (unknown) (no (unknown) (unknown) 12/27/22 (units (unkno wn) date) unknown) (unknown) (no (unknown) (unknown) 09:19 12/27/22 (units (unknown) date) unknown) (unknown) (no (unknown) (unknown) 09:20 12/27/22 (units (unknown) date) unknown) (unknown) (no (unknown) (unknown) 09:20 (units (unkno wn) date) unknown) (unknown) (no (unknown) (unknown) 09:30 12/27/22 (units (unknown) date) unknown) (unknown) (no (unknown) (unknown) 09:30 (units (unkno wn) date) unknown) (unknown) (no (unknown) (unknown) 10:14 (units (unkno wn) date) unknown) (unknown) (no (unknown) (unknown) 12:35 (units (unkno wn) date) unknown) (unknown) (no (unknown) (unknown) 15 miles home (units ( unknown) date) yesterday. Has unknown) been trying to see [facility] for repair. (unknown) (no (unknown) (unknown) [id number] (units (unkno wn) date) unknown) (unknown) (no (unknown) (unknown) 21:40 21:40 (units (un known) date) 22:15 unknown) (unknown) (no (unknown) (unknown) Age/Sex: 62 / M (units (unknown) date) unknown) (unknown) (no (unknown) (unknown) Allergies (units (unkn own) date) unknown) (unknown) (no (unknown) (unknown) Allergy/AdvReac (units (unknown) date) Type Severity unknown) Reaction Status Date / Time (unknown) (no (unknown) (unknown) Assessment + (units (u nknown) date) Plan unknown) (unknown) (no (unknown) (unknown) BUN 12 (units (unkno wn) date) unknown) (unknown) (no (unknown) (unknown) BUN (units (unkno wn) date) unknown) (unknown) (no (unknown) (unknown) BUN/Creatinine (units (unknown) date) Ratio 14.8 unknown) (unknown) (no (unknown) (unknown) BUN/Creatinine (units (unknown) date) Ratio unknown) (unknown) (no (unknown) (unknown) Baso # (Auto) (units ( unknown) date) 100 unknown) (unknown) (no (unknown) (unknown) Baso # (Auto) (units ( unknown) date) unknown) (unknown) (no (unknown) (unknown) Baso % (Auto) (units ( unknown) date) 0.7 unknown) (unknown) (no (unknown) (unknown) Baso % (Auto) (units ( unknown) date) unknown) (unknown) (no (unknown) (unknown) Been Physically (units (unknown) date) Hurt or Yes unknown) (unknown) (no (unknown) (unknown) Blood Pressure (units (unknown) date) 141/87 H unknown) (unknown) (no (unknown) (unknown) Blood Pressure (units (unknown) date) [Left Arm] 141/87 unknown) H (unknown) (no (unknown) (unknown) Blood Pressure (units (unknown) date) [Left Arm] unknown) (unknown) (no (unknown) (unknown) Blood Pressure (units (unknown) date) unknown) (unknown) (no (unknown) (unknown) Calcium 9.2 (units (un known) date) unknown) (unknown) (no (unknown) (unknown) Calcium (units (unkno wn) date) unknown) (unknown) (no (unknown) (unknown) Carbon Dioxide (units (unknown) date) 21 L unknown) (unknown) (no (unknown) (unknown) Carbon Dioxide (units (unknown) date) unknown) (unknown) (no (unknown) (unknown) Chest (units (unkno wn) date) unknown) (unknown) (no (unknown) (unknown) Chest: normal (units ( unknown) date) inspection of the unknown) chest (unknown) (no (unknown) (unknown) Chief complaint: (units (unknown) date) RLQ/ Testical unknown) pain (unknown) (no (unknown) (unknown) Chloride 105 (units (u nknown) date) unknown) (unknown) (no (unknown) (unknown) Chloride (units (unkno wn) date) unknown) (unknown) (no (unknown) (unknown) 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 Had worsening pain in R side after walking (unknown) (no (unknown) (unknown) Const (units (unkno wn) date) unknown) (unknown) (no (unknown) (unknown) Creatinine 0.81 (units (unknown) date) unknown) (unknown) (no (unknown) (unknown) Creatinine (units (unk nown) date) unknown) (unknown) (no (unknown) (unknown) Critical Care (units ( unknown) date) time: unknown) (unknown) (no (unknown) (unknown) : 1960 (units (unknown) date) Acct:[id number] unknown) (unknown) (no (unknown) (unknown) Date Patient (units (u nknown) date) Seen: 12/27/22 unknown) (unknown) (no (unknown) (unknown) Date of Service: (units (unknown) date) 12/26/22 unknown) (unknown) (no (unknown) (unknown) Ears: hearing (units ( unknown) date) grossly normal unknown) bilaterally (unknown) (no (unknown) (unknown) Environment (units (un known) date) unknown) (unknown) (no (unknown) (unknown) Eos # (Auto) 200 (units (unknown) date) unknown) (unknown) (no (unknown) (unknown) Eos # (Auto) (units (u nknown) date) unknown) (unknown) (no (unknown) (unknown) Eos % (Auto) 1.8 (units (unknown) date) L unknown) (unknown) (no (unknown) (unknown) Eos % (Auto) (units (u nknown) date) unknown) (unknown) (no (unknown) (unknown) Estimated GFR > (units (unknown) date) 60 unknown) (unknown) (no (unknown) (unknown) Estimated GFR (units ( unknown) date) unknown) (unknown) (no (unknown) (unknown) Exam Narrative: (units (unknown) date) unknown) (unknown) (no (unknown) (unknown) Exam (units (unkno wn) date) unknown) (unknown) (no (unknown) (unknown) Eyes (units (unkno wn) date) unknown) (unknown) (no (unknown) (unknown) Face and sinus: (units (unknown) date) normal facial unknown) exam (unknown) (no (unknown) (unknown) Family + Social (units (unknown) date) History unknown) (unknown) (no (unknown) (unknown) Feels Safe in (units ( unknown) date) Current No unknown) (unknown) (no (unknown) (unknown) General: healthy (units (unknown) date) appearing, unknown) comfortable and combative (unknown) (no (unknown) (unknown) Glucose 192 H (units ( unknown) date) unknown) (unknown) (no (unknown) (unknown) Glucose (units (unkno wn) date) unknown) (unknown) (no (unknown) (unknown) HENMT (units (unkno wn) date) unknown) (unknown) (no (unknown) (unknown) Hct 46.6 (units (unkno wn) date) unknown) (unknown) (no (unknown) (unknown) Hct (units (unkno wn) date) unknown) (unknown) (no (unknown) (unknown) Head: normal to (units (unknown) date) inspection and unknown) normocephalic (unknown) (no (unknown) (unknown) Hgb 16.3 (units (unkno wn) date) unknown) (unknown) (no (unknown) (unknown) Hgb (units (unkno wn) date) unknown) (unknown) (no (unknown) (unknown) History + (units (unkn own) date) Physical Report unknown) (unknown) (no (unknown) (unknown) History of (units (unk nown) date) Present Illness unknown) (unknown) (no (unknown) (unknown) Home Medications (units (unknown) date) and Allergies unknown) (unknown) (no (unknown) (unknown) I spent a total (units (unknown) date) of [] minutes of unknown) critical care time on this patient's care (unknown) (no (unknown) (unknown) [facility] (units (unknown) date) [address] unknown) [place] [address] (unknown) (no (unknown) (unknown) Laboratory (units (unk nown) date) Results - last 24 unknown) hr (unknown) (no (unknown) (unknown) Labs (units (unkno wn) date) unknown) (unknown) (no (unknown) (unknown) Labs: (units (unkno wn) date) unknown) (unknown) (no (unknown) (unknown) Limitations: (units (u nknown) date) behavioral unknown) limitations (unknown) (no (unknown) (unknown) Lymph # (Auto) (units (unknown) date) 1700 unknown) (unknown) (no (unknown) (unknown) Lymph # (Auto) (units (unknown) date) unknown) (unknown) (no (unknown) (unknown) Lymph % (Auto) (units (unknown) date) 19.6 L unknown) (unknown) (no (unknown) (unknown) Lymph % (Auto) (units (unknown) date) unknown) (unknown) (no (unknown) (unknown) MCH 31.7 (units (unkno wn) date) unknown) (unknown) (no (unknown) (unknown) MCH (units (unkno wn) date) unknown) (unknown) (no (unknown) (unknown) MCHC 34.9 (units (unkn own) date) unknown) (unknown) (no (unknown) (unknown) MCHC (units (unkno wn) date) unknown) (unknown) (no (unknown) (unknown) MCV 90.8 (units (unkno wn) date) unknown) (unknown) (no (unknown) (unknown) MCV (units (unkno wn) date) unknown) (unknown) (no (unknown) (unknown) Meds (units (unkno wn) date) unknown) (unknown) (no (unknown) (unknown) [facility] # (Auto) (units ( unknown) date) 500 unknown) (unknown) (no (unknown) (unknown) [facility] # (Auto) (units ( unknown) date) unknown) (unknown) (no (unknown) (unknown) [facility] % (Auto) (units ( unknown) date) 6.2 unknown) (unknown) (no (unknown) (unknown) [facility] % (Auto) (units ( unknown) date) unknown) (unknown) (no (unknown) (unknown) Narrative (units (unkn own) date) unknown) (unknown) (no (unknown) (unknown) Narrative: (units (unk nown) date) unknown) (unknown) (no (unknown) (unknown) Nasal Screen (units (u nknown) date) MRSA (PCR) unknown) Negative for mrsa (unknown) (no (unknown) (unknown) Nasal Screen (units (u nknown) date) MRSA (PCR) unknown) (unknown) (no (unknown) (unknown) Neck (units (unkno wn) date) unknown) (unknown) (no (unknown) (unknown) Neck: trachea (units ( unknown) date) midline unknown) (unknown) (no (unknown) (unknown) Neut # (Auto) (units ( unknown) date) 6300 unknown) (unknown) (no (unknown) (unknown) Neut # (Auto) (units ( unknown) date) unknown) (unknown) (no (unknown) (unknown) Neut % (Auto) (units ( unknown) date) 71.7 unknown) (unknown) (no (unknown) (unknown) Neut % (Auto) (units ( unknown) date) unknown) (unknown) (no (unknown) (unknown) No Known Drug (units ( unknown) date) Allergies Allergy unknown) Verified 12/26/22 21:43 (unknown) (no (unknown) (unknown) Nose: external (units (unknown) date) nose normal unknown) (unknown) (no (unknown) (unknown) Nutritional (units (un known) date) Appearance: thin unknown) (unknown) (no (unknown) (unknown) Objective (units (unkn own) date) unknown) (unknown) (no (unknown) (unknown) Orientation: (units (u nknown) date) alert, awake and unknown) oriented x3 (unknown) (no (unknown) (unknown) Oxygen Delivery (units (unknown) date) Method Room Air unknown) (unknown) (no (unknown) (unknown) Oxygen Delivery (units (unknown) date) Method unknown) (unknown) (no (unknown) (unknown) Patient History (units (unknown) date) unknown) (unknown) (no (unknown) (unknown) Patient: (units (unkno wn) date) Nithin Walton unknown) MR#: [id number] (unknown) (no (unknown) (unknown) Periorbital: (units (u nknown) date) periorbital unknown) findings normal (unknown) (no (unknown) (unknown) Plt Count 205 (units ( unknown) date) unknown) (unknown) (no (unknown) (unknown) Plt Count (units (unkn own) date) unknown) (unknown) (no (unknown) (unknown) Potassium 4.2 (units ( unknown) date) unknown) (unknown) (no (unknown) (unknown) Potassium (units (unkn own) date) unknown) (unknown) (no (unknown) (unknown) Prior Living (units (u nknown) date) Arrangements unknown) Other (unknown) (no (unknown) (unknown) Provider: (units (unkn own) date) Yuliana Degroot unknown) (unknown) (no (unknown) (unknown) Pulse Oximetry (units (unknown) date) 97 99 97 unknown) (unknown) (no (unknown) (unknown) Pulse Oximetry (units (unknown) date) 97 99 unknown) (unknown) (no (unknown) (unknown) Pulse Oximetry (units (unknown) date) unknown) (unknown) (no (unknown) (unknown) Pulse Rate 61 61 (units (unknown) date) unknown) (unknown) (no (unknown) (unknown) Pulse Rate 62 61 (units (unknown) date) unknown) (unknown) (no (unknown) (unknown) Pulse Rate (units (unk nown) date) unknown) (unknown) (no (unknown) (unknown) RBC 5.13 (units (unkno wn) date) unknown) (unknown) (no (unknown) (unknown) RBC (units (unkno wn) date) unknown) (unknown) (no (unknown) (unknown) RDW 14.0 (units (unkno wn) date) unknown) (unknown) (no (unknown) (unknown) RDW (units (unkno wn) date) unknown) (unknown) (no (unknown) (unknown) ROS: Yes All (units (u nknown) date) systems reviewed unknown) with the patient and are negative except as (unknown) (no (unknown) (unknown) Respiratory Rate (units (unknown) date) 14 17 unknown) (unknown) (no (unknown) (unknown) Respiratory Rate (units (unknown) date) 17 14 unknown) (unknown) (no (unknown) (unknown) Respiratory Rate (units (unknown) date) unknown) (unknown) (no (unknown) (unknown) Review of (units (unkn own) date) Systems unknown) (unknown) (no (unknown) (unknown) SARS-CoV-2 (PCR) (units (unknown) date) Negative unknown) (unknown) (no (unknown) (unknown) SARS-CoV-2 (PCR) (units (unknown) date) unknown) (unknown) (no (unknown) (unknown) Safety + (units (unkno wn) date) Behavioral: unknown) (unknown) (no (unknown) (unknown) Signed By: (units (unk nown) date) unknown) (unknown) (no (unknown) (unknown) Sleeping, no (units (u nknown) date) distress. unknown) (unknown) (no (unknown) (unknown) Smoking Status (units (unknown) date) Former smoker unknown) (unknown) (no (unknown) (unknown) Smoking packs (units ( unknown) date) per day 1 unknown) (unknown) (no (unknown) (unknown) Social History: (units (unknown) date) unknown) (unknown) (no (unknown) (unknown) Sodium 138 (units (unk nown) date) unknown) (unknown) (no (unknown) (unknown) Sodium (units (unkno wn) date) unknown) (unknown) (no (unknown) (unknown) Substance Use (units ( unknown) date) Type amphetamines unknown) (unknown) (no (unknown) (unknown) Teeth and (units (unkn own) date) gingiva: poor unknown) dentition (unknown) (no (unknown) (unknown) Temperature 97.9 (units (unknown) date) F unknown) (unknown) (no (unknown) (unknown) Temperature (units (un known) date) unknown) (unknown) (no (unknown) (unknown) Threatened By a (units (unknown) date) Person unknown) (unknown) (no (unknown) (unknown) Time Patient (units (u nknown) date) Seen: 13:40 unknown) (unknown) (no (unknown) (unknown) Time Spent With (units (unknown) date) Patient unknown) (unknown) (no (unknown) (unknown) Tobacco + (units (unkn own) date) Substance use: unknown) (unknown) (no (unknown) (unknown) Tobacco type (units (u nknown) date) cigarettes unknown) (unknown) (no (unknown) (unknown) Vital Signs (units (un known) date) unknown) (unknown) (no (unknown) (unknown) WBC 8.8 (units (unkno wn) date) unknown) (unknown) (no (unknown) (unknown) WBC (units (unkno wn) date) unknown) (unknown) (no (unknown) (unknown) [Embedded Image (units (unknown) date) Not Available] unknown) (unknown) (no (unknown) (unknown) alcohol intake (units (unknown) date) frequency other unknown) (unknown) (no (unknown) (unknown) household (units (unkn own) date) members none unknown) (unknown) (no (unknown) (unknown) otherwise (units (unkn own) date) documented unknown) (unknown) (no (unknown) (unknown) today; this time (units (unknown) date) is exclusive of unknown) procedural time. Result panel 86 (unknown) (no (unknown) (unknown) (no value) (units (unk nown) date) unknown) (unknown) (no (unknown) (unknown) (past 8 hours): (units (unknown) date) unknown) (unknown) (no (unknown) (unknown) 12/26/22 (units (unkno wn) date) 12/26/22 12/26/22 unknown) (unknown) (no (unknown) (unknown) 12/26/22 21:40 (units (unknown) date) unknown) (unknown) (no (unknown) (unknown) 12/27/22 (units (unkno wn) date) unknown) (unknown) (no (unknown) (unknown) 12/29/22 0939 (units ( unknown) date) unknown) (unknown) (no (unknown) (unknown) 09:19 12/27/22 (units (unknown) date) unknown) (unknown) (no (unknown) (unknown) 09:20 12/27/22 (units (unknown) date) unknown) (unknown) (no (unknown) (unknown) 09:20 (units (unkno wn) date) unknown) (unknown) (no (unknown) (unknown) 09:30 12/27/22 (units (unknown) date) unknown) (unknown) (no (unknown) (unknown) 09:30 (units (unkno wn) date) unknown) (unknown) (no (unknown) (unknown) 10:14 (units (unkno wn) date) unknown) (unknown) (no (unknown) (unknown) 12:35 (units (unkno wn) date) unknown) (unknown) (no (unknown) (unknown) 15 miles home (units ( unknown) date) yesterday. Has unknown) been [facility] to see [facility] for repair. (unknown) (no (unknown) (unknown) [address] (units (unkno wn) date) unknown) (unknown) (no (unknown) (unknown) 21:40 21:40 (units (un known) date) 22:15 unknown) (unknown) (no (unknown) (unknown) Admitted for (units (u nknown) date) painful unknown) incarcerated, possible strangulated vs obstructive. (unknown) (no (unknown) (unknown) Affect: labile (units (unknown) date) affect unknown) (unknown) (no (unknown) (unknown) Age/Sex: 62 / M (units (unknown) date) unknown) (unknown) (no (unknown) (unknown) Allergies (units (unkn own) date) unknown) (unknown) (no (unknown) (unknown) Allergy/AdvReac (units (unknown) date) Type Severity unknown) Reaction Status Date / Time (unknown) (no (unknown) (unknown) Assessment + (units (u nknown) date) Plan narrative: unknown) (unknown) (no (unknown) (unknown) Assessment + (units (u nknown) date) Plan unknown) (unknown) (no (unknown) (unknown) BUN 12 (units (unkno wn) date) unknown) (unknown) (no (unknown) (unknown) BUN (units (unkno wn) date) unknown) (unknown) (no (unknown) (unknown) BUN/Creatinine (units (unknown) date) Ratio 14.8 unknown) (unknown) (no (unknown) (unknown) BUN/Creatinine (units (unknown) date) Ratio unknown) (unknown) (no (unknown) (unknown) Baso # (Auto) (units ( unknown) date) 100 unknown) (unknown) (no (unknown) (unknown) Baso # (Auto) (units ( unknown) date) unknown) (unknown) (no (unknown) (unknown) Baso % (Auto) (units ( unknown) date) 0.7 unknown) (unknown) (no (unknown) (unknown) Baso % (Auto) (units ( unknown) date) unknown) (unknown) (no (unknown) (unknown) Been Physically (units (unknown) date) Hurt or Yes unknown) (unknown) (no (unknown) (unknown) Between admit (units ( unknown) date) and my exam, unknown) hernia's are reduced and w/o complication. (unknown) (no (unknown) (unknown) Blood Pressure (units (unknown) date) 141/87 H unknown) (unknown) (no (unknown) (unknown) Blood Pressure (units (unknown) date) [Left Arm] 141/87 unknown) H (unknown) (no (unknown) (unknown) Blood Pressure (units (unknown) date) [Left Arm] unknown) (unknown) (no (unknown) (unknown) Blood Pressure (units (unknown) date) unknown) (unknown) (no (unknown) (unknown) Both inguinal (units ( unknown) date) hernias unknown) spontaneously reduced while lying flat (unknown) (no (unknown) (unknown) COVID-19 status: (units (unknown) date) Negative unknown) (unknown) (no (unknown) (unknown) COVID-19 (units (unkno wn) date) unknown) (unknown) (no (unknown) (unknown) Calcium 9.2 (units (un known) date) unknown) (unknown) (no (unknown) (unknown) Calcium (units (unkno wn) date) unknown) (unknown) (no (unknown) (unknown) Carbon Dioxide (units (unknown) date) 21 L unknown) (unknown) (no (unknown) (unknown) Carbon Dioxide (units (unknown) date) unknown) (unknown) (no (unknown) (unknown) Cardio (units (unkno wn) date) unknown) (unknown) (no (unknown) (unknown) Chest (units (unkno wn) date) unknown) (unknown) (no (unknown) (unknown) Chest: normal (units ( unknown) date) inspection of the unknown) chest (unknown) (no (unknown) (unknown) Chief complaint: (units (unknown) date) RLQ/ Testical unknown) pain (unknown) (no (unknown) (unknown) Chloride 105 (units (u nknown) date) unknown) (unknown) (no (unknown) (unknown) Chloride (units (unkno wn) date) unknown) (unknown) (no (unknown) (unknown) 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 Had worsening pain in R side after walking (unknown) (no (unknown) (unknown) Const (units (unkno wn) date) unknown) (unknown) (no (unknown) (unknown) Creatinine 0.81 (units (unknown) date) unknown) (unknown) (no (unknown) (unknown) Creatinine (units (unk nown) date) unknown) (unknown) (no (unknown) (unknown) Critical Care (units ( unknown) date) time: unknown) (unknown) (no (unknown) (unknown) : 1960 (units (unknown) date) Acct:[id number] unknown) (unknown) (no (unknown) (unknown) Date Patient (units (u nknown) date) Seen: 12/27/22 unknown) (unknown) (no (unknown) (unknown) Date of Service: (units (unknown) date) 12/26/22 unknown) (unknown) (no (unknown) (unknown) Ears: hearing (units ( unknown) date) grossly normal unknown) bilaterally (unknown) (no (unknown) (unknown) Effort + (units (unkno wn) date) Inspection: unknown) normal respiratory effort and able to speak in complete (unknown) (no (unknown) (unknown) Environment (units (un known) date) unknown) (unknown) (no (unknown) (unknown) Eos # (Auto) 200 (units (unknown) date) unknown) (unknown) (no (unknown) (unknown) Eos # (Auto) (units (u nknown) date) unknown) (unknown) (no (unknown) (unknown) Eos % (Auto) 1.8 (units (unknown) date) L unknown) (unknown) (no (unknown) (unknown) Eos % (Auto) (units (u nknown) date) unknown) (unknown) (no (unknown) (unknown) Estimated GFR > (units (unknown) date) 60 unknown) (unknown) (no (unknown) (unknown) Estimated GFR (units ( unknown) date) unknown) (unknown) (no (unknown) (unknown) Exam Narrative: (units (unknown) date) unknown) (unknown) (no (unknown) (unknown) Exam (units (unkno wn) date) unknown) (unknown) (no (unknown) (unknown) Eyes (units (unkno wn) date) unknown) (unknown) (no (unknown) (unknown) Face and sinus: (units (unknown) date) normal facial unknown) exam (unknown) (no (unknown) (unknown) Family + Social (units (unknown) date) History unknown) (unknown) (no (unknown) (unknown) Feels Safe in (units ( unknown) date) Current No unknown) (unknown) (no (unknown) (unknown) GI (units (unkno wn) date) unknown) (unknown) (no (unknown) (unknown) (units (unkno wn) date) unknown) (unknown) (no (unknown) (unknown) General: healthy (units (unknown) date) appearing, unknown) comfortable and combative (unknown) (no (unknown) (unknown) General: patient (units (unknown) date) alert, patient unknown) awake and patient oriented x3 (unknown) (no (unknown) (unknown) General: turgor (units (unknown) date) normal unknown) (unknown) (no (unknown) (unknown) Glucose 192 H (units ( unknown) date) unknown) (unknown) (no (unknown) (unknown) Glucose (units (unkno wn) date) unknown) (unknown) (no (unknown) (unknown) HENMT (units (unkno wn) date) unknown) (unknown) (no (unknown) (unknown) Hct 46.6 (units (unkno wn) date) unknown) (unknown) (no (unknown) (unknown) Hct (units (unkno wn) date) unknown) (unknown) (no (unknown) (unknown) Head: normal to (units (unknown) date) inspection and unknown) normocephalic (unknown) (no (unknown) (unknown) Hgb 16.3 (units (unkno wn) date) unknown) (unknown) (no (unknown) (unknown) Hgb (units (unkno wn) date) unknown) (unknown) (no (unknown) (unknown) History + (units (unkn own) date) Physical Report unknown) (unknown) (no (unknown) (unknown) History of (units (unk nown) date) Present Illness unknown) (unknown) (no (unknown) (unknown) Home Medications (units (unknown) date) and Allergies unknown) (unknown) (no (unknown) (unknown) I spent a total (units (unknown) date) of [] minutes of unknown) critical care time on this patient's care (unknown) (no (unknown) (unknown) [facility] (units (unknown) date) [address] unknown) [place] [address] (unknown) (no (unknown) (unknown) Judgment: fair (units (unknown) date) unknown) (unknown) (no (unknown) (unknown) Laboratory (units (unk nown) date) Results - last 24 unknown) hr (unknown) (no (unknown) (unknown) Labs (units (unkno wn) date) unknown) (unknown) (no (unknown) (unknown) Labs: (units (unkno wn) date) unknown) (unknown) (no (unknown) (unknown) Limitations: (units (u nknown) date) behavioral unknown) limitations (unknown) (no (unknown) (unknown) Lymph # (Auto) (units (unknown) date) 1700 unknown) (unknown) (no (unknown) (unknown) Lymph # (Auto) (units (unknown) date) unknown) (unknown) (no (unknown) (unknown) Lymph % (Auto) (units (unknown) date) 19.6 L unknown) (unknown) (no (unknown) (unknown) Lymph % (Auto) (units (unknown) date) unknown) (unknown) (no (unknown) (unknown) MCH 31.7 (units (unkno wn) date) unknown) (unknown) (no (unknown) (unknown) MCH (units (unkno wn) date) unknown) (unknown) (no (unknown) (unknown) MCHC 34.9 (units (unkn own) date) unknown) (unknown) (no (unknown) (unknown) MCHC (units (unkno wn) date) unknown) (unknown) (no (unknown) (unknown) MCV 90.8 (units (unkno wn) date) unknown) (unknown) (no (unknown) (unknown) MCV (units (unkno wn) date) unknown) (unknown) (no (unknown) (unknown) Meds (units (unkno wn) date) unknown) (unknown) (no (unknown) (unknown) Mental Status: (units (unknown) date) mental status unknown) grossly normal (unknown) (no (unknown) (unknown) [facility] # (Auto) (units ( unknown) date) 500 unknown) (unknown) (no (unknown) (unknown) [facility] # (Auto) (units ( unknown) date) unknown) (unknown) (no (unknown) (unknown) [facility] % (Auto) (units ( unknown) date) 6.2 unknown) (unknown) (no (unknown) (unknown) [facility] % (Auto) (units ( unknown) date) unknown) (unknown) (no (unknown) (unknown) Mood: irritable (units (unknown) date) mood unknown) (unknown) (no (unknown) (unknown) Narrative (units (unkn own) date) unknown) (unknown) (no (unknown) (unknown) Narrative: (units (unk nown) date) unknown) (unknown) (no (unknown) (unknown) Nasal Screen (units (u nknown) date) MRSA (PCR) unknown) Negative for mrsa (unknown) (no (unknown) (unknown) Nasal Screen (units (u nknown) date) MRSA (PCR) unknown) (unknown) (no (unknown) (unknown) Neck (units (unkno wn) date) unknown) (unknown) (no (unknown) (unknown) Neck: trachea (units ( unknown) date) midline unknown) (unknown) (no (unknown) (unknown) Neuro (units (unkno wn) date) unknown) (unknown) (no (unknown) (unknown) Neut # (Auto) (units ( unknown) date) 6300 unknown) (unknown) (no (unknown) (unknown) Neut # (Auto) (units ( unknown) date) unknown) (unknown) (no (unknown) (unknown) Neut % (Auto) (units ( unknown) date) 71.7 unknown) (unknown) (no (unknown) (unknown) Neut % (Auto) (units ( unknown) date) unknown) (unknown) (no (unknown) (unknown) No Known Drug (units ( unknown) date) Allergies Allergy unknown) Verified 12/26/22 21:43 (unknown) (no (unknown) (unknown) Nose: external (units (unknown) date) nose normal unknown) (unknown) (no (unknown) (unknown) Nutritional (units (un known) date) Appearance: thin unknown) (unknown) (no (unknown) (unknown) Objective (units (unkn own) date) unknown) (unknown) (no (unknown) (unknown) Orientation: (units (u nknown) date) alert, awake and unknown) oriented x3 (unknown) (no (unknown) (unknown) Other: (units (unkno wn) date) unknown) (unknown) (no (unknown) (unknown) Oxygen Delivery (units (unknown) date) Method Room Air unknown) (unknown) (no (unknown) (unknown) Oxygen Delivery (units (unknown) date) Method unknown) (unknown) (no (unknown) (unknown) Palpation: soft (units (unknown) date) unknown) (unknown) (no (unknown) (unknown) Patient History (units (unknown) date) unknown) (unknown) (no (unknown) (unknown) Patient: (units (unkno wn) date) Princess,Nithin E unknown) MR#: [id number] (unknown) (no (unknown) (unknown) Penis: normal (units ( unknown) date) penis unknown) (unknown) (no (unknown) (unknown) Periorbital: (units (u nknown) date) periorbital unknown) findings normal (unknown) (no (unknown) (unknown) Plan: Patient (units ( unknown) date) became very angry unknown) at the mere suggestion of not operating since (unknown) (no (unknown) (unknown) Plt Count 205 (units ( unknown) date) unknown) (unknown) (no (unknown) (unknown) Plt Count (units (unkn own) date) unknown) (unknown) (no (unknown) (unknown) Potassium 4.2 (units ( unknown) date) unknown) (unknown) (no (unknown) (unknown) Potassium (units (unkn own) date) unknown) (unknown) (no (unknown) (unknown) Prior Living (units (u nknown) date) Arrangements unknown) Other (unknown) (no (unknown) (unknown) Provider: (units (unkn own) date) Yuliana Degroot unknown) (unknown) (no (unknown) (unknown) Psych (units (unkno wn) date) unknown) (unknown) (no (unknown) (unknown) Pulse Oximetry (units (unknown) date) 97 99 97 unknown) (unknown) (no (unknown) (unknown) Pulse Oximetry (units (unknown) date) 97 99 unknown) (unknown) (no (unknown) (unknown) Pulse Oximetry (units (unknown) date) unknown) (unknown) (no (unknown) (unknown) Pulse Rate 61 61 (units (unknown) date) unknown) (unknown) (no (unknown) (unknown) Pulse Rate 62 61 (units (unknown) date) unknown) (unknown) (no (unknown) (unknown) Pulse Rate (units (unk nown) date) unknown) (unknown) (no (unknown) (unknown) RBC 5.13 (units (unkno wn) date) unknown) (unknown) (no (unknown) (unknown) RBC (units (unkno wn) date) unknown) (unknown) (no (unknown) (unknown) RDW 14.0 (units (unkno wn) date) unknown) (unknown) (no (unknown) (unknown) RDW (units (unkno wn) date) unknown) (unknown) (no (unknown) (unknown) ROS: Yes All (units (u nknown) date) systems reviewed unknown) with the patient and are negative except as (unknown) (no (unknown) (unknown) Rate: regular (units ( unknown) date) rate unknown) (unknown) (no (unknown) (unknown) Resp (units (unkno wn) date) unknown) (unknown) (no (unknown) (unknown) Respiratory Rate (units (unknown) date) 14 17 unknown) (unknown) (no (unknown) (unknown) Respiratory Rate (units (unknown) date) 17 14 unknown) (unknown) (no (unknown) (unknown) Respiratory Rate (units (unknown) date) unknown) (unknown) (no (unknown) (unknown) Review of (units (unkn own) date) Systems unknown) (unknown) (no (unknown) (unknown) Rhythm: regular (units (unknown) date) rhythm unknown) (unknown) (no (unknown) (unknown) SARS-CoV-2 (PCR) (units (unknown) date) Negative unknown) (unknown) (no (unknown) (unknown) SARS-CoV-2 (PCR) (units (unknown) date) unknown) (unknown) (no (unknown) (unknown) Safety + (units (unkno wn) date) Behavioral: unknown) (unknown) (no (unknown) (unknown) Scrotum: scrotum (units (unknown) date) normal unknown) (unknown) (no (unknown) (unknown) Signed (units (unkno wn) date) By:<Electronicall unknown) y signed by Yuliana Degroot MD> (unknown) (no (unknown) (unknown) Skin (units (unkno wn) date) unknown) (unknown) (no (unknown) (unknown) Sleeping, no (units (u nknown) date) distress. Moves unknown) w/o hesitation when stretching. (unknown) (no (unknown) (unknown) Smoking Status (units (unknown) date) Former smoker unknown) (unknown) (no (unknown) (unknown) Smoking packs (units ( unknown) date) per day 1 unknown) (unknown) (no (unknown) (unknown) Social History: (units (unknown) date) unknown) (unknown) (no (unknown) (unknown) Sodium 138 (units (unk nown) date) unknown) (unknown) (no (unknown) (unknown) Sodium (units (unkno wn) date) unknown) (unknown) (no (unknown) (unknown) Speech and (units (unk nown) date) Movement: unknown) agitated (unknown) (no (unknown) (unknown) Substance Use (units ( unknown) date) Type amphetamines unknown) (unknown) (no (unknown) (unknown) Teeth and (units (unkn own) date) gingiva: poor unknown) dentition (unknown) (no (unknown) (unknown) Temperature 97.9 (units (unknown) date) F unknown) (unknown) (no (unknown) (unknown) Temperature (units (un known) date) unknown) (unknown) (no (unknown) (unknown) Thought Content: (units (unknown) date) compulsions unknown) (unknown) (no (unknown) (unknown) Threatened By a (units (unknown) date) Person unknown) (unknown) (no (unknown) (unknown) Time Patient (units (u nknown) date) Seen: 13:40 unknown) (unknown) (no (unknown) (unknown) Time Spent With (units (unknown) date) Patient unknown) (unknown) (no (unknown) (unknown) Time with (units (unkn own) date) patient: 30 to 49 unknown) minutes with 50% spent counseling/coordi nating care (unknown) (no (unknown) (unknown) Tobacco + (units (unkn own) date) Substance use: unknown) (unknown) (no (unknown) (unknown) Tobacco type (units (u nknown) date) cigarettes unknown) (unknown) (no (unknown) (unknown) Vital Signs (units (un known) date) unknown) (unknown) (no (unknown) (unknown) WBC 8.8 (units (unkno wn) date) unknown) (unknown) (no (unknown) (unknown) WBC (units (unkno wn) date) unknown) (unknown) (no (unknown) (unknown) [Embedded Image (units (unknown) date) Not Available] unknown) (unknown) (no (unknown) (unknown) alcohol intake (units (unknown) date) frequency other unknown) (unknown) (no (unknown) (unknown) [facility] ([facility]) (no (unknown) (unknown) household (units (unkn own) date) members none unknown) (unknown) (no (unknown) (unknown) otherwise (units (unkn own) date) documented unknown) (unknown) (no (unknown) (unknown) sentences (units (unkn own) date) unknown) (unknown) (no (unknown) (unknown) the issue had (units ( unknown) date) resolved and unknown) there was a clear event that he can avoid for it not (unknown) (no (unknown) (unknown) to happen again. (units (unknown) date) Demanded to be unknown) discharged. And so he was discharged to home (unknown) (no (unknown) (unknown) today; this time (units (unknown) date) is exclusive of unknown) procedural time. Result panel 87 (unknown) (no (unknown) (unknown) (no value) (units (unk nown) date) unknown) (unknown) (no (unknown) (unknown) (past 8 hours): (units (unknown) date) unknown) (unknown) (no (unknown) (unknown) 12/26/22 21:40 (units (unknown) date) unknown) (unknown) (no (unknown) (unknown) 12/26/22 22:10 (units (unknown) date) unknown) (unknown) (no (unknown) (unknown) 12/26/22 22:11 (units (unknown) date) unknown) (unknown) (no (unknown) (unknown) 12/27/22 11:34 (units (unknown) date) unknown) (unknown) (no (unknown) (unknown) 12/29/22 0942 (units ( unknown) date) unknown) (unknown) (no (unknown) (unknown) [id number] (units (unkno wn) date) unknown) (unknown) (no (unknown) (unknown) Admitted for (units (u nknown) date) observation to unknown) rule out strangulated right inguinal hernia (unknown) (no (unknown) (unknown) Age/Sex: 62 / M (units (unknown) date) unknown) (unknown) (no (unknown) (unknown) Assessment and (units (unknown) date) Plan unknown) (unknown) (no (unknown) (unknown) Assessment: (units (un known) date) unknown) (unknown) (no (unknown) (unknown) Bilateral (units (unkn own) date) inguinal hernias unknown) w/o incarceration, strangulation or obstruction (unknown) (no (unknown) (unknown) Bilateral (units (unkn own) date) inguinal hernias unknown) (unknown) (no (unknown) (unknown) Chief complaint: (units (unknown) date) RLQ/ Testical unknown) pain (unknown) (no (unknown) (unknown) Cognitive/behavi (units (unknown) date) oral status at unknown) discharge: oriented (unknown) (no (unknown) (unknown) Comment: (units (unkno wn) date) unknown) (unknown) (no (unknown) (unknown) Consult to (units (unk nown) date) General Surgery unknown) Stat (unknown) (no (unknown) (unknown) Consult to [facility] - (units (unknown) date) Economic Geographer unknown) Routine (unknown) (no (unknown) (unknown) Consulting (units (unk nown) date) Provider: unknown) Yuliana Degroot (unknown) (no (unknown) (unknown) Consults: (units (unkn own) date) unknown) (unknown) (no (unknown) (unknown) : 1960 (units (unknown) date) Acct:[id number] unknown) (unknown) (no (unknown) (unknown) Date Patient (units (u nknown) date) Seen: 12/27/22 unknown) (unknown) (no (unknown) (unknown) Date of Service: (units (unknown) date) 12/26/22 unknown) (unknown) (no (unknown) (unknown) Date of (units (unkno wn) date) admission: unknown) (unknown) (no (unknown) (unknown) Diet/Activity/Tr (units (unknown) date) eatments unknown) (unknown) (no (unknown) (unknown) Diet: Diet as (units ( unknown) date) Tolerated unknown) (unknown) (no (unknown) (unknown) Discharge (units (unkn own) date) Assessment + Plan unknown) (unknown) (no (unknown) (unknown) Discharge Date: (units (unknown) date) 12/27/22 unknown) (unknown) (no (unknown) (unknown) Discharge (units (unkn own) date) Diagnosis: unknown) (unknown) (no (unknown) (unknown) Discharge Plan (units (unknown) date) unknown) (unknown) (no (unknown) (unknown) Discharge (units (unkn own) date) Providers unknown) (unknown) (no (unknown) (unknown) Discharge (units (unkn own) date) Summary unknown) (unknown) (no (unknown) (unknown) Discharge home (units (unknown) date) with education on unknown) hernia reduction if they become 'stuck' and (unknown) (no (unknown) (unknown) Discharge (units (unkn own) date) provider: unknown) (unknown) (no (unknown) (unknown) Exam Narrative: (units (unknown) date) unknown) (unknown) (no (unknown) (unknown) Exam (units (unkno wn) date) unknown) (unknown) (no (unknown) (unknown) Functional (units (unk nown) date) status at unknown) discharge: independent ambulation (unknown) (no (unknown) (unknown) Has provider (units (u nknown) date) been notified: unknown) Yes (unknown) (no (unknown) (unknown) History of (units (unk nown) date) Present Illness unknown) (unknown) (no (unknown) (unknown) Hospital Course (units (unknown) date) unknown) (unknown) (no (unknown) (unknown) Hospital Course: (units (unknown) date) unknown) (unknown) (no (unknown) (unknown) Instructions: DI (units (unknown) date) for Groin Hernia unknown) (unknown) (no (unknown) (unknown) [facility] (units (unknown) date) [address] unknown) [place] [address] (unknown) (no (unknown) (unknown) Labs (units (unkno wn) date) unknown) (unknown) (no (unknown) (unknown) Narrative (units (unkn own) date) unknown) (unknown) (no (unknown) (unknown) Narrative: (units (unk nown) date) unknown) (unknown) (no (unknown) (unknown) Objective (units (unkn own) date) unknown) (unknown) (no (unknown) (unknown) Overall status (units (unknown) date) at discharge: unknown) patient is back to baseline (unknown) (no (unknown) (unknown) Oxygen Delivery (units (unknown) date) Method Room Air unknown) (unknown) (no (unknown) (unknown) PFSH (units (unkno wn) date) unknown) (unknown) (no (unknown) (unknown) Patient (units (unkno wn) date) Disposition: Home unknown) (unknown) (no (unknown) (unknown) Patient: (units (unkno wn) date) Nithin Walton unknown) MR#: [id number] (unknown) (no (unknown) (unknown) Yuliana (units (unkno wn) date) MD Zane unknown) (unknown) (no (unknown) (unknown) Plan of (units (unkno wn) date) Treatment: unknown) (unknown) (no (unknown) (unknown) Provider (units (unkno wn) date) unknown) (unknown) (no (unknown) (unknown) Provider: (units (unkn own) date) Yuliana Degroot unknown) (unknown) (no (unknown) (unknown) Reason for (units (unk nown) date) consultation: unknown) Incarcerated inguinal hernia (unknown) (no (unknown) (unknown) Signed (units (unkno wn) date) By:<Electronicall unknown) y signed by Yuliana Degroot MD> (unknown) (no (unknown) (unknown) Sleeping, no (units (u nknown) date) distress. Moves unknown) w/o hesitation when stretching. (unknown) (no (unknown) (unknown) Smoking Status: (units (unknown) date) Former smoker unknown) (unknown) (no (unknown) (unknown) Social History (units (unknown) date) (Reviewed unknown) 12/27/22 @ 02:54 by Giovanni hCirinos DO) (unknown) (no (unknown) (unknown) Stand Alone (units (un known) date) Forms: Patient unknown) Portal/API (unknown) (no (unknown) (unknown) Status at (units (unkn own) date) Discharge unknown) (unknown) (no (unknown) (unknown) Summary (units (unkno wn) date) unknown) (unknown) (no (unknown) (unknown) Time Patient (units (u nknown) date) Seen: 13:00 unknown) (unknown) (no (unknown) (unknown) Time Spent with (units (unknown) date) Patient unknown) (unknown) (no (unknown) (unknown) Time spent: Less (units (unknown) date) than 30 minutes unknown) (unknown) (no (unknown) (unknown) Visit (units (unkno wn) date) Report/Discharge unknown) Packet (unknown) (no (unknown) (unknown) Vital Signs (units (un known) date) unknown) (unknown) (no (unknown) (unknown) [Embedded Image (units (unknown) date) Not Available] unknown) (unknown) (no (unknown) (unknown) at [facility] for (units (unknown) date) elective repair. unknown) (unknown) (no (unknown) (unknown) household (units (unkn own) date) members: none unknown) (unknown) (no (unknown) (unknown) painful again. (units (unknown) date) Return to ED if unknown) he is unable to resolve the issue. O/w follow up (unknown) (no (unknown) (unknown) unchanged from (units (unknown) date) progress note unknown) Social History date description facility 2022-12-27 00:00 Unknown if ever smoked [facility] 2022-12-27 00:00 Ex-smoker (finding) [facility] Vital Signs date measurement value units 2022-12-26 00:00 BMI 19.3 kg/m2 2022-12-26 00:00 height_metric 167.64 cm 2022-12-26 00:00 height_standard 66 in 2022-12-26 00:00 weight_metric 54.43 kg 2022-12-26 00:00 weight_standard 120 lb 2022-12-27 00:00 BP_diastolic 87 mmHg 2022-12-27 00:00 BP_systolic 141 mmHg 2022-12-27 00:00 heart_rate 61 /min 2022-12-27 00:00 height_metric 167.64 cm 2022-12-27 00:00 height_standard 66 in 2022-12-27 00:00 o2_saturation 99 % 2022-12-27 00:00 respiration_rate 17 /min 2022-12-27 00:00 temperature_metric 36.61 C 2022-12-27 00:00 temperature_standard 97.9 F 2022-12-27 00:00 weight_metric 54.43 kg 2022-12-27 00:00 weight_standard 120 lb
[2023-02-02 14:50] LABS: MUDS CUTOFF CONCENTRATIONS CUTOFF CONC BELOW:
[2023-02-02 14:52] LABS: BASOPHILS # (AUTO) 0.1 10^3/uL (0.0-0.1); BASOPHILS % (AUTO) 0.8 %; EOSINOPHILS # (AUTO) 0.1 10^3/uL (0.0-0.7); EOSINOPHILS % (AUTO) 0.8 %; HCT - HEMATOCRIT 47.6 % (42.0-52.0); HGB - HEMOGLOBIN 16.8 g/dL (14.0-18.0); LYMPHOCYTES # (AUTO) 1.5 10^3/uL (1.5-3.5); LYMPHOCYTES % (AUTO) 19.2 %; MEAN CORPUSCULAR HEMOGLOBIN 31.9 pg (27.0-31.0); MEAN CORPUSCULAR HGB CONC 35.3 g/dL (32.0-36.0); MEAN CORPUSCULAR VOLUME 90.3 fL (80.0-94.0); MONOCYTES # (AUTO) 0.6 10^3/uL (0.0-1.0); NEUTROPHILS # (AUTO) 5.8 10^3/uL (1.5-6.6); NEUTROPHILS % (AUTO) 72.1 %; PLT - PLATELET COUNT 225 10^3/uL (130-450); RED BLOOD COUNT 5.27 10^6/uL (4.70-6.10)
[2023-02-02 14:55] LABS: BILIRUBIN,URINE NEGATIVE (NEGATIVE); GLUCOSE, URINE (UA) NEGATIVE (NEGATIVE); KETONES,URINE (UA) NEGATIVE (NEGATIVE); LEUKOCYTE ESTERASE, URINE MODERATE (NEGATIVE); NITRITE,URINE POSITIVE (NEGATIVE); OCCULT BLOOD,URINE NEGATIVE (NEGATIVE); PROTEIN,URINE TRACE mg/dL (NEGATIVE); UROBILINOGEN,URINE 0.2 (NORMAL) E.U./dL (NORMAL)
--- NOTE | 2023-02-02 15:01 | ED Physician Documentation ---
PD HPI MHE - Stated complaint Stated Complaint: MHE/DIONNA - Chief complaint Chief Complaint: MHE - History obtained from History obtained from: Patient, EMS, Police (sent pt to ER on DIONNA due to agitation and suicidal ideation/statements.) - History of Present Illness Primary symptom: Suicidal ideation (He was at the [email or web address] store to buy a phone and was frustrated over something. The salesperson asked how he was doing and he stated "it is a good day to ". Police and EMS were called as he appeared agitated. He did express suicidal ideation with a plan of using a homemade "zip gun" he is making), Manic, Off meds (he states ran out of meds couple months ago. Was in ER 1 month ago for med refill and left without script because "someone disrespected me, so I left".), Out of meds. No: Suicide attempt Timing - onset: How many months ago (increasing labile mood the past couple of weeks, per patient.) Contributing factors: Out of meds Recently seen: Emergency Dept (1 month ago was last eval.) Review of Systems Constitutional: denies: Fever Nose: denies: Rhinorrhea / runny nose, Congestion Throat: denies: Sore throat Cardiac: denies: Chest pain / pressure Respiratory: denies: Cough GI: denies: Abdominal Pain, Vomiting, Diarrhea Neurologic: denies: Headache, Head injury PD PAST MEDICAL HISTORY - Past Medical History Cardiovascular: None Respiratory: None GI: GERD Psych: Bipolar disorder - Past Surgical History Past Surgical History: Yes General: Cholecystectomy Ortho: Other - Present Medications Home Medications: Ambulatory Orders Medication Instructions Recorded Confirmed Omeprazole 20 mg PO DAILY 08/18/16 09/08/18 QUEtiapine [SEROquel] 25 mg PO DAILY 08/18/16 09/08/18 Gabapentin 100 mg PO TID 09/08/18 09/08/18 traZODone [Desyrel] 100 mg PO DAILY PM 09/08/18 09/08/18 cephALEXin [Keflex] 500 mg PO BID #14 capsule 09/09/18 Trazodone HCl 100 mg PO QPM #30 tablet 12/23/22 buPROPion [Wellbutrin Sr] 100 mg PO BID #60 tablet 02/02/23 cephALEXin [Keflex] 500 mg PO TID #20 cap 02/02/23 risperiDONE [RisperDAL] 1 mg PO QPM #30 tablet 02/02/23 traZODone [Desyrel] 100 mg PO HS 30 Days #60 tablet 02/02/23 - Allergies Allergies/Adverse Reactions: Allergies Allergy/AdvReac Type Severity Reaction Status Date / Time codeine Allergy Emesis Verified 09/08/18 19:24 - Social History Does the pt smoke?: No Smoking Status: Never smoker Does the pt drink ETOH?: Yes Does the pt have substance abuse?: Yes Substance Use and Type: Marijuana - Immunizations Immunizations are current?: Yes - POLST Patient has POLST: No PD ED PE NORMAL - Vitals Vital signs reviewed: Yes - General General: Alert and oriented X 3, Well developed/nourished, Other (anxious and agry about being brought here. then is tearful. Then calm. He does admit to wanting to kill himself at some point with homemade gun at home. He would not say if soon plans. ) - Neck Neck: Supple, no meningeal sign, No adenopathy - Cardiac Cardiac: RRR, No murmur - Respiratory Respiratory: Clear bilaterally - Abdomen Abdomen: Soft, Non tender - Derm Derm: Normal color, Warm and dry - Extremities Extremities: Normal ROM s pain - Neuro Neuro: Alert and oriented X 3, No motor deficit, Normal speech Results - Vitals Vitals: Vital Signs - 24 hr 02/02/23 14:41 Temperature 36.9 C Heart Rate 72 Respiratory 18 Rate Blood Pressure 164/94 H O2 Saturation 98 Oxygen O2 Source Room air - Labs Labs: Laboratory Tests 02/02/23 02/02/23 02/02/23 14:45 14:45 14:45 WBC 8.0 RBC 5.27 Hgb 16.8 Hct 47.6 MCV 90.3 MCH 31.9 H MCHC 35.3 RDW 12.0 Plt Count 225 MPV 9.0 Neut # (Auto) 5.8 Lymph # (Auto) 1.5 [place] # (Auto) 0.6 Eos # (Auto) 0.1 Baso # (Auto) 0.1 Absolute Nucleated RBC 0.00 Nucleated RBC % 0.0 Sodium 134 L Potassium 3.6 Chloride 92 L Carbon Dioxide 32 Anion Gap 10.0 BUN 13 Creatinine 0.9 Estimated GFR (MDRD) 86 L Glucose 149 H Calcium 9.8 Total Bilirubin 0.8 AST 23 ALT 20 Alkaline Phosphatase 107 Total Protein 8.0 Albumin 4.7 Globulin 3.3 Albumin/Globulin Ratio 1.4 Lipase 37 TSH 0.33 L Free T4 Total T3 Urine Color Urine Clarity Urine pH Ur Specific [place] Urine Protein Urine Glucose (UA) Urine Ketones Urine Occult Blood Urine Nitrite Urine Bilirubin Urine Urobilinogen Ur Leukocyte Esterase Urine RBC Urine WBC Ur Squamous Epith Cells Urine Bacteria Ur Microscopic Review Urine Culture Comments Salicylates < 6.0 Urine Opiates Screen Ur Oxycodone Screen Urine Methadone Screen Ur Propoxyphene Screen Acetaminophen < 10 L Ur Barbiturates Screen Ur Tricyclics Screen Ur Phencyclidine Scrn Ur Amphetamine Screen U Methamphetamines Scrn U Benzodiazepines Scrn Urine Cocaine Screen U Cannabinoids Screen Ethyl Alcohol < 5.0 SARS-CoV-2 (PCR) 02/02/23 02/02/23 02/02/23 14:45 14:45 14:45 WBC RBC Hgb Hct MCV MCH MCHC RDW Plt Count MPV Neut # (Auto) Lymph # (Auto) [place] # (Auto) Eos # (Auto) Baso # (Auto) Absolute Nucleated RBC Nucleated RBC % Sodium Potassium Chloride Carbon Dioxide Anion Gap BUN Creatinine Estimated GFR (MDRD) Glucose Calcium Total Bilirubin AST ALT Alkaline Phosphatase Total Protein Albumin Globulin Albumin/Globulin Ratio Lipase TSH Free T4 1.03 Total T3 1.22 Urine Color Urine Clarity Urine pH Ur Specific [place] Urine Protein Urine Glucose (UA) Urine Ketones Urine Occult Blood Urine Nitrite Urine Bilirubin Urine Urobilinogen Ur Leukocyte Esterase Urine RBC Urine WBC Ur Squamous Epith Cells Urine Bacteria Ur Microscopic Review Urine Culture Comments Salicylates Urine Opiates Screen Ur Oxycodone Screen Urine Methadone Screen Ur Propoxyphene Screen Acetaminophen Ur Barbiturates Screen Ur Tricyclics Screen Ur Phencyclidine Scrn Ur Amphetamine Screen U Methamphetamines Scrn U Benzodiazepines Scrn Urine Cocaine Screen U Cannabinoids Screen Ethyl Alcohol SARS-CoV-2 (PCR) NOT DETECTED 02/02/23 14:48 WBC RBC Hgb Hct MCV MCH MCHC RDW Plt Count MPV Neut # (Auto) Lymph # (Auto) [place] # (Auto) Eos # (Auto) Baso # (Auto) Absolute Nucleated RBC Nucleated RBC % Sodium Potassium Chloride Carbon Dioxide Anion Gap BUN Creatinine Estimated GFR (MDRD) Glucose Calcium Total Bilirubin AST ALT Alkaline Phosphatase Total Protein Albumin Globulin Albumin/Globulin Ratio Lipase TSH Free T4 Total T3 Urine Color YELLOW Urine Clarity CLOUDY Urine pH 6.0 Ur Specific [place] 1.020 Urine Protein TRACE Urine Glucose (UA) NEGATIVE Urine Ketones NEGATIVE Urine Occult Blood NEGATIVE Urine Nitrite POSITIVE H Urine Bilirubin NEGATIVE Urine Urobilinogen 0.2 (NORMAL) Ur Leukocyte Esterase MODERATE H Urine RBC 0-5 Urine WBC >25 H Ur Squamous Epith Cells NONE SEEN Urine Bacteria Moderate H Ur Microscopic Review INDICATED Urine Culture Comments INDICATED Salicylates Urine Opiates Screen NEGATIVE Ur Oxycodone Screen NEGATIVE Urine Methadone Screen NEGATIVE Ur Propoxyphene Screen NEGATIVE Acetaminophen Ur Barbiturates Screen NEGATIVE Ur Tricyclics Screen NEGATIVE Ur Phencyclidine Scrn NEGATIVE Ur Amphetamine Screen NEGATIVE U Methamphetamines Scrn NEGATIVE U Benzodiazepines Scrn NEGATIVE Urine Cocaine Screen NEGATIVE U Cannabinoids Screen POSITIVE H Ethyl Alcohol SARS-CoV-2 (PCR) PD Medical Decision Making - ED course Complexity details: reviewed results (positive for cannibis as expected. Negative for else (fentanyl does not regularly show up on our drug screen).), considered differential (seems manic with labile mood. from tearful to crying to calm. He wanted to elope and then agreed to stay calmly and cooperatively. He agreed to medicines. brought to ER under DIONNA by [place]. ), d/w patient, d/w ergonomics consultant (Kelley, the designated crisis responder, came to evaluate the patient and talk to him and reviewed his record. He seemed to be much calmer now after a few hours of sleep and having had some medication. He denies suicidal intent at this time. He does describe ideation but no intent or plan. ) Social Determinants of Health: A claim to one of the ER nurses to have taken fentanyl recently. Unclear if regularly. He also admits to cannabis. He denies other substances. He has been out of his prescription medicines for over a month. He did try to get a refill of them here in the ER a month ago but left before he got the prescription because "someone disrespected me". He was claiming suicidal ideation and had a plan of using a homemade gun that he has at home but is not yet completed. He does have labile mood from angry to tearful to calm. He does have a coherent train of thought. At this point I would be uncomfortable with the idea of him safety planning because of his age and gender being high risk and his ideation of attempting with a gun and his labile mood. For these reasons I feel the patient needs to be evaluated by the DCR for possible involuntary status. The patient was initially refusing blood draws and urine test but then relented and agreed to give blood. He also agreed to IM and oral medication to help himself relax. He requested Ativan but I felt olanzapine would be more appropriate and he consented. He was also given oral trazodone at half of his usual dose, 50 mg rather than the 100 as the 100 is usually for night and sleep. He did have a gradual calming and is able to rest and relax and is more pleasant and talkative with staff. I talked with Shira the DCR who is out on another case with the event technician's office and would respond to the ER as soon as she is available or pass it onto the 6 PM provider. ED course: The DCR evaluated the patient and feels he is dischargeable and not at risk of self-harm at this time. I will write him his prescriptions as well as a prescription for an antibiotic for apparent UTI. He agrees with this and is grateful for the prescriptions as he has been unable to get them filled. He requests them sent to [facility]. Departure - Departure Disposition: 01 Home, Self Care Clinical Impression: Bipolar 1 disorder, manic, moderate, Suicidal ideation Acute cystitis Qualifiers: Hematuria presence: without hematuria Qualified Code(s): N30.00 - Acute cystitis without hematuria Condition: Stable Record reviewed to determine appropriate education?: Yes Instructions: ED UTI Cystitis Male Follow-Up: [facility] [Provider Group] Prescriptions: traZODone [Desyrel] 100 mg PO HS 30 Days #60 tablet cephALEXin [Keflex] 500 mg PO TID #20 cap risperiDONE [RisperDAL] 1 mg PO QPM #30 tablet buPROPion [Wellbutrin Sr] 100 mg PO BID #60 tablet Comments: I wrote for your prior medications, enough that should give you time to get f ollow up appt. I also prescribed Keflex three times daily for 7 days for apparent bladder infection. Stay well hydrated. Take usual medications. I sent your medication prescriptions to [facility] in [place].
[2023-02-02 15:09] LABS: CLARITY,URINE CLOUDY (CLEAR)
[2023-02-02 15:09] LABS: ACETAMINOPHEN < 10 ug/mL (10-30); ALBUMIN 4.7 g/dL (3.2-5.5); ALBUMIN/GLOBULIN RATIO 1.4 (1.0-2.2); ALKALINE PHOSPHATASE 107 IU/L (42-121); ALT ALANINE AMINOTRANSFERASE 20 IU/L (10-60); AST ASPARTATE AMINOTRANSFERASE 23 IU/L (10-42); BILIRUBIN,TOTAL 0.8 mg/dL (0.2-1.0); BUN - BLOOD UREA NITROGEN 13 mg/dL (6-20); CALCIUM 9.8 mg/dL (8.5-10.3); CARBON DIOXIDE - CO2 32 mmol/L (21-32); CHLORIDE 92 mmol/L (101-111); CREATININE 0.9 mg/dL (0.6-1.2); ETOH - ETHANOL < 5.0 mg/dL; GFR - MDRD 86 (>89); GLUCOSE 149 mg/dL (70-100); LIPASE 37 U/L (22-51); POTASSIUM 3.6 mmol/L (3.5-5.0); SALICYLATE < 6.0 mg/dL; SODIUM 134 mmol/L (135-145)
[2023-02-02 15:12] LABS: THC CANNABINOID SCREEN, URINE POSITIVE (NEGATIVE)
[2023-02-02 15:13] LABS: AMPHETAMINE SCREEN,URINE NEGATIVE (NEGATIVE); BARBITURATE SCREEN,UR NEGATIVE (NEGATIVE); BENZODIAZEPINES SCREEN, URINE NEGATIVE (NEGATIVE); COCAINE SCREEN URINE NEGATIVE (NEGATIVE); METHADONE SCREEN, URINE NEGATIVE (NEGATIVE); METHAMPHETAMINES SCREEN, URINE NEGATIVE (NEGATIVE); OPIATE SCREEN, URINE NEGATIVE (NEGATIVE); OXYCODONE SCREEN, URINE NEGATIVE (NEGATIVE); PROPOXYPHENE SCREEN, URINE NEGATIVE (NEGATIVE); TRICYCLIC ANTIDEPRESSANT,URINE NEGATIVE (NEGATIVE)
[2023-02-02 15:15] LABS: BACTERIA,URINE Moderate /HPF (None Seen); RBC,URINE 0-5 /HPF (0-5); SQUAMOUS EPITHELIAL CELL,UR NONE SEEN (<= Few); WBC,URINE >25 /HPF (0-3)
[2023-02-02] MEDS ORDERED: cephALEXin 250 MG CAPSULE PO STA (16:55)
[2023-02-02 18:57] VITALS: BP 148/99
== END 2023-02-02 18:57 | disposition home or self-care (01) ==
LOC: EDUNIT# → ED 14:13
DX: R45.851 Suicidal ideations (principal); F31.9 Bipolar disorder, unspecified; T50.906A Underdosing of unspecified drugs, medicaments and biological substances, initial encounter; Z91.138 Patient's unintentional underdosing of medication regimen for other reason; N30.00 Acute cystitis without hematuria; Z20.822 Contact with and (suspected) exposure to COVID-19
CPT/HCPCS: 36415; 80053; 80306; 80307; 80320; 80329; 81001; 83690; 84439; 84443; 84480; 85025; 87077; 87086; 87181; 87635; 96372; 99283; 99284; A9270; 81003